=== PATIENT | female | born 1950 | race Caucasian/White ===

== ENCOUNTER → 2017-07-09 | Outpatient (CLI) | payer MEDICARE, OTHER | END | disposition home or self-care (01) | LOC: ECHO 10:43 | DX: I08.3 Combined rheumatic disorders of mitral, aortic and tricuspid valves (principal); R06.00 Dyspnea, unspecified | CPT/HCPCS: 93306 ==

== ENCOUNTER → 2017-10-08 | Outpatient (CLI) | payer MEDICARE, OTHER | END | disposition home or self-care (01) | LOC: NM 12:31 | DX: I48.0 Paroxysmal atrial fibrillation (principal) | CPT/HCPCS: 78452; 93017; 96374; 96376; A9500 ==

== ENCOUNTER → 2017-11-19 | Outpatient (CLI) | payer MEDICARE, OTHER ==
--- NOTE | 2017-11-19 11:25 | KCIC ---
Bone densitometry 11/19/2017 11:00 AM Indication: History of breast cancer. Comparison Study: Bone densitometry November 19, 2015 Discussion: Bone Densitometry was performed with dual photon absorption of the lumbar spine and left proximal femur. Lumbar Spine: Bone average density is 1.015g/cm2 for L1-L4. T-Score is -0.3. (Prior T score of 0.0) Left femoral neck: Bone average density is 0.815g/cm2. T-Score is -1.0. (Prior T score -0.8) IMPRESSION: 1. Mild decrease in bone mineral density measurements in the interim with left femoral neck now measuring of the osteopenic range 2. Normal bone mineral density of the lumbar spine Note: Definitions established by the World Health Organization: Normal: T-score is -1.0 or above. Osteopenia: T-score is between -1.0 and -2.5. Osteoporosis: T-score is -2.5 or below. Electronically signed by: Bryan Medley MD (11/19/2017 11:22 AM) [facility]
== END | disposition home or self-care (01) ==
LOC: KCIC DEXA 10:48
PROVIDERS: ATTEND Internal Medicine Hematology & Oncology
DX: N95.9 Unspecified menopausal and perimenopausal disorder (principal); I48.0 Paroxysmal atrial fibrillation; Z85.3 Personal history of malignant neoplasm of breast
CPT/HCPCS: 77080

== ENCOUNTER → 2018-02-24 | Outpatient (CLI) | payer MEDICARE, OTHER ==
[2018-02-24 11:51] LABS: CALCIUM 9.5 mg/dL (8.5-10.1); CHOLESTEROL/HDL RATIO 2.5; CREATININE 1.1 mg/dL (0.6-1.0); GFR 49.7; POTASSIUM 4.6 mmol/L (3.5-5.1)
== END | disposition home or self-care (01) ==
LOC: LAB 11:05
PROVIDERS: ATTEND Internal Medicine Cardiovascular Disease
DX: I47.1 Supraventricular tachycardia (principal)
CPT/HCPCS: 36415; 80048; 80061

== ENCOUNTER 2018-11-15 12:18 | Emergency (ER) | payer MEDICARE, OTHER ==
[~2018-11-15] VITALS: Ht 160 cm; Wt 61.2 kg
[2018-11-15 12:43] VITALS: BP 165/79
--- NOTE | 2018-11-15 13:14 | PHYS DOC ---
Past Medical History Past Medical History: GERD, High Cholesterol, Heart Disease, Hypertension, Hypothyroid Past Surgical History: Other Additional Past Surgical Histo: BILAT, MASTECTOMY Smoking: Less than 1pk/day (1990 day he is a tiny complaining of weakness and not eating hemoglobin of 5.3 history of anemia. He) Alcohol Use: None Drug Use: None Adult General Chief Complaint Chief Complaint: Palpitations HPI HPI Patient is a 68 year old female who presents with complaining of palpitation. Patient states she has had intermittent episodes of palpitation and extra heart beat since yesterday that usually last for a few minutes without shortness of breath, dizziness, nausea, chest pain focal neuro deficit. Patient complaining of mild generalized weakness. Patient seen by her primary care physician yesterday and had EKG and was told that she did not have any significant cardiac problem but because of continued to have abnormal heartbeat she decided to come to ER. Review of Systems Review of Systems Constitutional: Denies fever or chills [] Eyes: Denies change in visual acuity, redness, or eye pain [] HENT: Denies nasal congestion or sore throat [] Respiratory: Denies cough or shortness of breath [] Cardiovascular: No additional information not addressed in HPI [] GI: Denies abdominal pain, nausea, vomiting, bloody stools or diarrhea [] : Denies dysuria or hematuria [] Musculoskeletal: Denies back pain or joint pain [] Integument: Denies rash or skin lesions [] Neurologic: Denies headache, focal weakness or sensory changes [] Endocrine: Denies polyuria or polydipsia [] All other systems were reviewed and found to be within normal limits, except as documented in this note. Allergies Allergies Allergies Coded Allergies Type Severity Reaction Last Updated Verified Penicillins Allergy Severe RASH 11/15/18 Yes morphine Allergy Severe LOW BP 11/15/18 Yes prednisone Allergy Severe PALPATATIONS 11/15/18 Yes Physical Exam Physical Exam Constitutional: Well developed, well nourished, mild distress, non-toxic appearance. [] HENT: Normocephalic, atraumatic. Eyes: PERRLA, EOMI, conjunctiva normal, no discharge. [] Neck: Normal range of motion, no tenderness, supple, no stridor. [] Cardiovascular:Heart rate regular rhythm, no murmur [] Lungs & Thorax: Bilateral breath sounds clear to auscultation [] Abdomen: Bowel sounds normal, soft, no tenderness, no masses, no pulsatile masses. [] Skin: Warm, dry, no erythema, no rash. [] Back: No tenderness, no CVA tenderness. [] Extremities: No tenderness, no cyanosis, no clubbing, ROM intact, no edema. [] Neurologic: Alert and oriented X 3, no focal deficits noted. [] Psychologic: Affect normal, judgement normal, mood normal. [] Current Patient Data Vital Signs Vital Signs Date Time Temp Pulse Resp B/P (MAP) Pulse Ox O2 Delivery O2 Flow Rate FiO2 11/15/18 12:43 98.4 100 16 165/79 (107) 98 Room Air 98.4 Lab Values Laboratory Tests Test 11/15/18 13:24 11/15/18 14:00 White Blood Count 7.9 x10^3/uL (4.0-11.0) Red Blood Count 4.37 x10^6/uL (3.50-5.40) Hemoglobin 13.7 g/dL (12.0-15.5) Hematocrit 38.8 % (36.0-47.0) Mean Corpuscular Volume 89 fL (79-100) Mean Corpuscular Hemoglobin 31 pg (25-35) Mean Corpuscular Hemoglobin Concent 35 g/dL (31-37) Red Cell Distribution Width 12.9 % (11.5-14.5) Platelet Count 261 x10^3/uL (140-400) Neutrophils (%) (Auto) 75 % (31-73) H Lymphocytes (%) (Auto) 19 % (24-48) L Monocytes (%) (Auto) 6 % (0-9) Eosinophils (%) (Auto) 0 % (0-3) Basophils (%) (Auto) 0 % (0-3) Neutrophils # (Auto) 5.9 x10^3/uL (1.8-7.7) Lymphocytes # (Auto) 1.5 x10^3/uL (1.0-4.8) Monocytes # (Auto) 0.4 x10^3/uL (0.0-1.1) Eosinophils # (Auto) 0.0 x10^3/uL (0.0-0.7) Basophils # (Auto) 0.0 x10^3/uL (0.0-0.2) Prothrombin Time 12.3 SEC (11.7-14.0) Prothrombin Time INR 0.9 (0.8-1.1) Sodium Level 135 mmol/L (136-145) L Potassium Level 4.0 mmol/L (3.5-5.1) Chloride Level 99 mmol/L (98-107) Carbon Dioxide Level 25 mmol/L (21-32) Anion Gap 11 (6-14) Blood Urea Nitrogen 10 mg/dL (7-20) Creatinine 1.1 mg/dL (0.6-1.0) H Estimated GFR (Cockcroft-Gault) 49.5 BUN/Creatinine Ratio 9 (6-20) Glucose Level 160 mg/dL (70-99) H Calcium Level 9.8 mg/dL (8.5-10.1) Magnesium Level 1.8 mg/dL (1.8-2.4) Total Bilirubin 0.7 mg/dL (0.2-1.0) Aspartate Amino Transferase (AST) 14 U/L (15-37) L Alanine Aminotransferase (ALT) 12 U/L (14-59) L Alkaline Phosphatase 52 U/L (46-116) Creatine Kinase 36 U/L (26-192) Creatine Kinase MB (Mass) 0.7 ng/mL (0.0-3.6) Creatine Kinase MB Relative Index % (0-4) Troponin I Quantitative < 0.017 ng/mL (0.000-0.055) YF-Pqa-N-Type Natriuretic Peptide 946 pg/mL (0-124) H Total Protein 7.4 g/dL (6.4-8.2) Albumin 3.9 g/dL (3.4-5.0) Albumin/Globulin Ratio 1.1 (1.0-1.7) Lipase 263 U/L (73-393) Urine Collection Type Unknown Urine Color Yellow Urine Clarity Clear Urine pH 8.0 Urine Specific [place] 1.010 Urine Protein Negative mg/dL (NEG-TRACE) Urine Glucose (UA) Negative mg/dL (NEG) Urine Ketones (Stick) Negative mg/dL (NEG) Urine Blood Negative (NEG) Urine Nitrite Negative (NEG) Urine Bilirubin Negative (NEG) Urine Urobilinogen Dipstick 0.2 mg/dL (0.2 mg/dL) Urine Leukocyte Esterase Negative (NEG) Urine RBC Rare /HPF (0-2) Urine WBC Occ /HPF (0-4) Urine Squamous Epithelial Cells Few /LPF Urine Bacteria Few /HPF (0-FEW) Laboratory Tests 11/15/18 13:24 Laboratory Tests 11/15/18 13:24 EKG EKG EKG interpreted by me. EKG at 1225 showed sinus arrhythmia with rate of 92, abnormal left axis deviation, left anterior fascicular block, poor R-wave progress in anteroseptal leads, no acute ST and T-wave elevation. Radiology/Procedures Radiology/Procedures [][facility] [address] [place] [address] IMAGING REPORT Signed PATIENT: KAYLEN DARDEN ACCOUNT: [id number] : 1950 LOCATION: ER AGE: 68 SEX: F EXAM STATUS: REG ER ORD. PHYSICIAN: GIAN SOARES MD REASON: palpitation PROCEDURE: PORTABLE CHEST 1V PORTABLE CHEST 1V INDICATION: Palpitations. COMPARISON STUDY: CT chest 08/04/2007. FINDINGS: Lungs: Normal lung volume. No pulmonary mass or consolidation. The tracheobronchial tree and hilar structures are normal. Pleura: No pleural effusion or pneumothorax. Heart and Mediastinum: Normal cardiomediastinal silhouette and great vessels. Calcified mediastinal lymph nodes. Bones and Soft Tissues: The bones and soft tissues are within normal limits. IMPRESSION: No acute cardiopulmonary process. Electronically signed by: Veronica Isaac MD (11/15/2018 1:19 PM) [facility] DICTATED and SIGNED BY: VERONICA ISAAC MD DATE: 11/15/18 7847 Course & Med Decision Making Course & Med Decision Making Pertinent Labs and Imaging studies reviewed. (See chart for details) Evaluation of patient in ER showed 68-year-old female patient with history of tachycardia presented to ER with episodes of palpitation. Patient had unremarkable labs and EKG and chest x-ray. Patient had episodes of sinus tachycardia without change of blood pressure or mental status. Patient cardiol ogist was consulted and his nurse practitioner suggested to continue metoprolol and Flecainide and follow-up with their office. I've spoken with the patient and/or caregivers. I've explained the patient's condition, diagnosis and treatment plan based on information available to me at this time. I've answered the patient's and/or caregivers questions and addressed any concerns. The patient and/or caregivers have a good understanding the patient's diagnosis, condition and treatment plan as can be expected at this point. Vital signs have been stabilized. The patient's condition is stable for discharge from the emergency department. The patient will pursue further outpatient evaluation with her primary care provider or other designated consulting physician as outlined in the discharge instructions. Patient and/or caregivers are agreeable to this plan of care and follow-up instructions have been explained in detail. The patient and/or caregivers have received these instructions in written format and expressed understanding of these discharge instructions. The patient and her caregivers are aware that if any significant change in condition or worsening of symptoms should prompt him to immediately return to this of the closest emergency department. If an emergent department is not readily available I would encourage him to call 911. Dragon Disclaimer Dragon Disclaimer This electronic medical record was generated, in whole or in part, using a voice recognition dictation system. 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
--- NOTE | 2018-11-15 13:21 | RAD ---
PORTABLE CHEST 1V INDICATION: Palpitations. COMPARISON STUDY: CT chest 08/04/2007. FINDINGS: Lungs: Normal lung volume. No pulmonary mass or consolidation. The tracheobronchial tree and hilar structures are normal. Pleura: No pleural effusion or pneumothorax. Heart and Mediastinum: Normal cardiomediastinal silhouette and great vessels. Calcified mediastinal lymph nodes. Bones and Soft Tissues: The bones and soft tissues are within normal limits. IMPRESSION: No acute cardiopulmonary process. Electronically signed by: Rojelio Isaac MD (11/15/2018 1:19 PM) [facility]
[2018-11-15 13:43] LABS: BASO % 0 % (0-3); EOS % 0 % (0-3); HEMATOCRIT 38.8 % (36.0-47.0); HEMOGLOBIN 13.7 g/dL (12.0-15.5); LYMPH # 1.5 x10^3/uL (1.0-4.8); LYMPH % 19 % (24-48); MEAN CORPUSCULAR HEMOGLOBIN 31 pg (25-35); MEAN CORPUSCULAR HGB CONC 35 g/dL (31-37); MEAN CORPUSCULAR VOLUME 89 fL (79-100); MONO # 0.4 x10^3/uL (0.0-1.1); MONO % 6 % (0-9); NEUT # 5.9 x10^3/uL (1.8-7.7); NEUT % 75 % (31-73); PLATELET COUNT 261 x10^3/uL (140-400); RED BLOOD COUNT 4.37 x10^6/uL (3.50-5.40); RED CELL DISTRIBUTION WIDTH 12.9 % (11.5-14.5); WHITE BLOOD COUNT 7.9 x10^3/uL (4.0-11.0)
[2018-11-15 13:49] LABS: CALCIUM 9.8 mg/dL (8.5-10.1); CREATININE 1.1 mg/dL (0.6-1.0); GFR 49.5
[2018-11-15 13:50] LABS: PROTHROMBIN TIME PATIENT 12.3 SEC (11.7-14.0)
[2018-11-15 13:56] LABS: ALBUMIN 3.9 g/dL (3.4-5.0); ALBUMIN/GLOBULIN RATIO 1.1 (1.0-1.7); MAGNESIUM 1.8 mg/dL (1.8-2.4); TOTAL BILIRUBIN 0.7 mg/dL (0.2-1.0); TOTAL PROTEIN 7.4 g/dL (6.4-8.2)
[2018-11-15 14:03] LABS: CREATINE KINASE 36 U/L (26-192)
[2018-11-15 14:19] LABS: BILIRUBIN,URINE NEGATIVE (NEG); CLARITY,URINE CLEAR; COLOR,URINE YELLOW; NITRITE,URINE NEGATIVE (NEG); PROTEIN,URINE NEGATIVE (NEG-TRACE); UROBILINOGEN,URINE 0.2 mg/dL (0.2 mg/dL)
[2018-11-15 14:29] LABS: BACTERIA,URINE FEW /HPF (0-FEW); RBC,URINE RARE /HPF (0-2); SQUAMOUS EPITHELIAL CELL,UR FEW /LPF; WBC,URINE OCC /HPF (0-4)
--- NOTE | 2018-11-16 05:42 | EKG ---
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 Electronically Signed On 11-19-2018 9:57:10 CDT by Jatin Kruger
== END 2018-11-15 14:58 | disposition home or self-care (01) ==
LOC: ER 12:18
DX: R00.2 Palpitations (principal); R79.89 Other specified abnormal findings of blood chemistry; R00.0 Tachycardia, unspecified; R53.1 Weakness; K21.9 Gastro-esophageal reflux disease without esophagitis; E78.00 Pure hypercholesterolemia, unspecified; I11.9 Hypertensive heart disease without heart failure; E03.9 Hypothyroidism, unspecified; F17.200 Nicotine dependence, unspecified, uncomplicated; Z90.13 Acquired absence of bilateral breasts and nipples; Z88.0 Allergy status to penicillin; Z88.5 Allergy status to narcotic agent
CPT/HCPCS: 36415; 71045; 80053; 81001; 82550; 82553; 83690; 83735; 83880; 84484; 85025; 85610; 93005; 99285-25

== ENCOUNTER → 2019-08-17 | Outpatient (CLI) | payer MEDICARE, OTHER ==
--- NOTE | 2019-08-17 10:19 | CARD ---
MR#: [id number] Date of Study: 08/17/2019 Ordering Physician: CODI PIKE, Referring Physician: CODI PIKE, Tech: Domenica Ortiz [facility] APPROVED REPORT EXAM: Two-dimensional and M-mode echocardiogram with Doppler and color Doppler. Other Information Quality : Good INDICATION Supraventricular Tachycardia 2D DIMENSIONS RVDd2.8 (2.9-3.5cm)Left Atrium(2D)3.7 (1.6-4.0cm) IVSd0.9 (0.7-1.1cm)Aortic Root(2D)2.8 (2.0-3.7cm) LVDd5.0 (3.9-5.9cm)LVOT Diameter2.0 (1.8-2.4cm) PWd0.9 (0.7-1.1cm)LVDs3.9 (2.5-4.0cm) FS (%) 20.9 %SV49.5 ml Aortic Valve AoV Peak Gilberto.111.1cm/sAoV VTI22.9cm AO Peak GR.4.9mmHgLVOT Peak Gilberto.90.7cm/s AO Mean GR.3mmHgAVA (VMAX)2.66cm2 POOL (VTI)2.99fs0PY P 1/2 Zqlt597dg Mitral Valve MV E Bflwqwjb69.5cm/sMV DECEL JEIB042iz MV A Jvzcbbii34.5cm/sE/A Ratio1.0 Tricuspid Valve TR P. Honykcyc984uk/sRAP HKNDDXNQ4rwYw TR Peak Gr.67ofMlJHQU13jvFt Pulmonary Vein S1 Ptmywoln60.2cm/sD2 Zckgbixq82.4cm/s LEFT VENTRICLE The Left Ventricle is mildly dilated. There is normal left ventricular wall thickness. Left ventricle systolic function is mildly impaired. The Ejection Fraction is estimated at 45%. There is mild globa l hypokinesis of the left ventricle. Transmitral Doppler flow pattern is Grade II-pseudonormal fillin g dynamics. RIGHT VENTRICLE The right ventricle is normal size. The right ventricular systolic function is normal. ATRIA The left atrium size is normal. The right atrium size is normal. The interatrial septum is intact wit h no evidence for an atrial septal defect or patent foramen ovale as noted on 2-D or Doppler imaging. AORTIC VALVE The aortic valve is calcified but opens well. Doppler and Color Flow revealed mild aortic regurgitati on. There is no significant aortic valvular stenosis. MITRAL VALVE The mitral valve is calcified but opens well. There is no evidence of mitral valve prolapse. There is no mitral valve stenosis. Doppler and Color-flow revealed mild mitral regurgitation. TRICUSPID VALVE The tricuspid valve is normal in structure and function. Doppler and Color Flow revealed trace tricus pid regurgitation. The PA pressure was estimated at 23 mmHg. There is no tricuspid valve stenosis. PULMONIC VALVE The pulmonic valve is not well visualized. Doppler and Color Flow revealed mild pulmonic valvular reg urgitation. There is no pulmonic valvular stenosis. GREAT VESSELS The aortic root is normal in size. The ascending aorta is normal in size. The IVC is normal in size a nd collapses >50% with inspiration. PERICARDIAL EFFUSION There is no evidence of significant pericardial effusion. Critical Notification Critical Value: No <Conclusion> The Left Ventricle is mildly dilated. Left ventricle systolic function is mildly impaired. The Ejection Fraction is estimated at 45%. There is mild global hypokinesis of the left ventricle. Doppler and Color Flow revealed mild aortic regurgitation. There is no significant aortic valvular stenosis. Doppler and Color-flow revealed mild mitral regurgitation. Doppler and Color Flow revealed trace tricuspid regurgitation. The PA pressure was estimated at 23 mmHg. Signed by : Jatin Kruger MD Electronically Approved : 08/17/2019 10:19:15
== END | disposition home or self-care (01) ==
LOC: CARD 09:27
PROVIDERS: ATTEND Internal Medicine Cardiovascular Disease
DX: I08.8 Other rheumatic multiple valve diseases (principal); I47.1 Supraventricular tachycardia
CPT/HCPCS: 93306

== ENCOUNTER → 2019-11-21 | Outpatient (CLI) | payer MEDICARE, OTHER ==
--- NOTE | 2019-11-21 12:19 | KCIC ---
DEXA scan 11/21/2019 Clinical History: Breast cancer. Postmenopausal female. Risk factors for osteoporosis. Technique: DEXA of the lumbar spine and left hip was performed. FINDINGS: Comparison study is dated 11/19/2018. The bone mineral density of the lumbar spine is 1.056 g/cm2 which corresponds with a T-score of 0.1 . This is within normal limits. The mean bone mineral density of the lumbar spine has increased since the previous study where it measured 1.015 g/sq cm. The mean bone mineral density of the left hip is 0.863 g/sq cm. This corresponds to a T score of -0.6. This is within normal limits. The mean bone mineral density left hip is increased since previous study where it measured 0.815 g/sq cm. By World Congress on Osteoporosis criteria, a T score of 0 to-1 SD is considered to be within normal limits. A T score of -1 to -2.5 SD is considered osteopenia. A T score less than -2.5 SD is considered osteoporosis Impression: The patient's mean bone mineral densities are within normal limits and have increased since the previous study. Electronically signed by: Dashawn Adamson MD (11/21/2019 12:16 PM) [id number]
== END | disposition home or self-care (01) ==
LOC: KCIC DEXA 11:27
PROVIDERS: ATTEND Internal Medicine Hematology & Oncology
DX: C50.919 Malignant neoplasm of unspecified site of unspecified female breast (principal); M85.80 Other specified disorders of bone density and structure, unspecified site; Z17.0 Estrogen receptor positive status [ER+]; Z79.811 Long term (current) use of aromatase inhibitors
CPT/HCPCS: 77080

== ENCOUNTER → 2020-10-08 | Outpatient (CLI) | payer MEDICARE, OTHER ==
[2020-08-23 11:00] VITALS: BP 188/79
[~2020-10-08] MED LIST: ASPI-630 PO; EXEM25TA2 PO; FLEC100T PO; LEVO75TA5 PO; LISI-517 PO; METF500T16 PO; METO50TA4 PO; OMEP20TA8 PO; REGADENOSON 0.4 MG/5 ML DISP.SYRIN. IV ONE; SIMV40TA18 PO
--- NOTE | 2020-10-08 11:07 | CARD ---
MR#: [id number] Date of Study: 10/08/2020 Ordering Physician: CODI PIKE, Referring Physician: CODI PIKE, Tech: Lucita Valadez [facility] APPROVED REPORT EXAM: Two-dimensional and M-mode echocardiogram with Doppler and color Doppler. Other Information Quality : AverageGoodHR: 65bpm Rhythm : NSR INDICATION Palpitations Arrhythmia RISK FACTORS Hypertension 2D DIMENSIONS RVDd3.0 (2.9-3.5cm)Left Atrium(2D)4.2 (1.6-4.0cm) IVSd0.9 (0.7-1.1cm)Aortic Root(2D)3.0 (2.0-3.7cm) LVDd5.1 (3.9-5.9cm)LVOT Diameter2.1 (1.8-2.4cm) PWd1.1 (0.7-1.1cm)LVDs4.1 (2.5-4.0cm) FS (%) 18.5 %SV46.9 ml LVEF(%)38.1 (>50%) Aortic Valve AoV Peak Gilberto.114.9cm/sAoV VTI24.4cm AO Peak GR.5.3mmHgLVOT Peak Gilberto.76.3cm/s AO Mean GR.3mmHgAVA (VMAX)2.23cm2 AI P 1/2 [id number] Mitral Valve MV E Slvqproc13.4cm/sMV DECEL WFVQ867dh MV A Hbnqhfuj64.4cm/sE/A Ratio0.9 Pulmonary Valve PV Peak Juxuuaie271.8cm/s Tricuspid Valve TR P. Izjtcnna617rz/sTR Peak Gr.24mmHg LEFT VENTRICLE The left ventricle is normal size. There is normal left ventricular wall thickness. The left ventricu lar systolic function is mildly diminished. Estimated ejection fraction 45%. Transmitral Doppler flow pattern is Grade I-abnormal relaxation pattern. RIGHT VENTRICLE The right ventricle is normal size. There is normal right ventricular wall thickness. The right ventr icular systolic function is normal. ATRIA The left atrium size is normal. The right atrium size is normal. The interatrial septum is intact wit h no evidence for an atrial septal defect or patent foramen ovale as noted on 2-D or Doppler imaging. AORTIC VALVE The aortic valve is normal in structure and function. Doppler and Color Flow revealed mild aortic reg urgitation. There is no significant aortic valvular stenosis. MITRAL VALVE The mitral valve is normal in structure and function. There is no evidence of mitral valve prolapse. There is no mitral valve stenosis. Doppler and Color-flow revealed mild mitral regurgitation. TRICUSPID VALVE The tricuspid valve is normal in structure and function. Doppler and Color Flow revealed trace tricus pid regurgitation. There is no tricuspid valve stenosis. PULMONIC VALVE The pulmonary valve is normal in structure and function. Doppler and Color Flow revealed no pulmonic valvular regurgitation. GREAT VESSELS The aortic root is normal in size. The ascending aorta is normal in size. The IVC is normal in size a nd collapses >50% with inspiration. PERICARDIAL EFFUSION There is no evidence of significant pericardial effusion. Critical Notification Critical Value: No <Conclusion> The left ventricular systolic function is mildly diminished. Estimated ejection fraction 45%. Transmitral Doppler flow pattern is Grade I-abnormal relaxation pattern. Mild aortic regurgitation. Mild mitral regurgitation. Trace tricuspid regurgitation. There is no evidence of significant pericardial effusion. Signed by : Kosta Yadav, Electronically Approved : 10/08/2020 11:06:49
--- NOTE | 2020-10-09 10:09 | RAD ---
MR#: [id number] Date of Study: 10/08/2020 Ordering Physician: CODI PIKE, Referring Physician: MOLLY HEARN Tech: RT Gay (R) (N) APPROVED REPORT Test Type: Pharmacological Stress Nurse/Tech: Andreina Pedroza RN Test Indications: paroxysmal a-fib Cardiac History: No known cardiac,chemotherapy for breast CA Medications: See Electronic Medical Record Medical History: See Electronic Medical Record Resting ECG: SR Resting Heart Rate: 71 bpm Resting Blood Pressure: 165/67mmHg Pretest Chest Pain: No chest pain Nurse/Tech Notes S1,S2 and lungs clear to ascultation. Consent: The procedure was explained to the patient in lay terms. Informed consent was witnessed. Marcellus eout was entered into [employer]. History and Stress Test performed by RT Gay (R) (N) Pharm. Details Pharmacologic stress testing was performed using 0.4mg per 5ml of regadenoson given intravenously ove r 7-10 seconds. Stress Symptoms Dyspnea POST EXERCISE Reason for Termination: Infusion complete Target HR: No Max Blood Pressure: 167/71mmHg Blood Pressure response to exercise: Normal blood pressure response during stress. Heart Rate response to exercise: WNL Chest Pain: No. Arrhythmia: No. ST Change: No. INTERPRETATION Stress EKG Conclusion: Baseline EKG showed sinus rhythm. No ischemic changes at peak stress. No arr hythmias. Imaging Protocol IMAGE PROTOCOL: Rest Tc-99m/stress Tc-99m 1 day Rest: Stress: Viability: Radiopharm.Tc99m ItlexiqikXb94k Sestamibi Dose9.8mCi 33mCi Duration 15min. 15min. Img Date 10/08/2020 10/08/2020 Inj-Img Ffrm50tlw. 60min. Rest Admin Site:IV - Left AntecubitalAdministrator:RT Aubrey (Ishmael)(N) Stress Admin Site: IV - Left AntecubitalAdministrator: RT Gay (R)(N) STRESS DATA End Diast. Vol.128.0mlAv. Heart Rate74.0bpm End Syst. Vol.54.0mlCO Index BSA0.0L/min Myocardial Ujul275.0gEject. Lguucloa94.0% Stress Rates Pk. Fill Rate2.71EDV/secLVtime Pk. Fill 88.58msec Pk. Empty Rate2.88ESV/secLVtime Pk. Luuqy199.67msec 1/3 Pk. Fill1.85EDV/sec Stress Scores Regional WT0.00Summed WT10.00 Regional WM0.00Summed WM14.00 Study quality was fair. Left Ventricular size was Normal at Rest and Stress. Lung uptake was . Left Ventricular ejection fraction is 58%. The rest and stress images show normal perfusion, normal contraction and thickening. LV Perf. Quant 17 Seg. SSS13.00 17 Seg. SRS18.00 17 Seg. SDS0.00 Stress Defect Extent (% LAD)18.10Rest Defect Extent (% LAD)23.10Rev. Defect Extent (% LAD)0.00 Stress Defect Extent (% LCX) 50.00Rest Defect Extent (% LCX)43.80Rev. Defect Extent (% LCX)2.50 Stress Defect Extent (% RCA)1.10Rest Defect Extent (% RCA)84.40Rev. Defect Extent (% RCA)0.00 Stress Defect Extent (% ALBERTO)21.30Rest Defect Extent (% ALBERTO)43.70Rev. Defect Extent (% ALBERTO)0.40 Conclusion 1. Regadenoson cardioisotope stress test did not show any evidence of ischemia or infarct. 2. Normal left ventricular systolic function with ejection fraction calculated at 58%. 3. Low risk for cardiac events. Signed by : Kosta Yadav, Electronically Approved : 10/09/2020 10:09:09
== END ==
LOC: NM 09:14
PROVIDERS: ATTEND Internal Medicine Cardiovascular Disease
DX: I08.0 Rheumatic disorders of both mitral and aortic valves (principal); I47.1 Supraventricular tachycardia
CPT/HCPCS: 78452; 93017; 93306; A9500; J2785

== ENCOUNTER 2020-12-19 19:57 | Emergency (ER) | payer MEDICARE, OTHER ==
[~2020-12-19] VITALS: Ht 160 cm; Wt 61.0 kg
[~2020-12-19 19:57] MED LIST changes: -REGADENOSON 0.4 MG/5 ML DISP.SYRIN. IV ONE
[2020-12-19] MEDS ORDERED: FLECAINIDE ACETATE 50 MG TABLET. PO SCH (20:45)
[2020-12-19] MEDS ORDERED: METOPROLOL TART IMMED RELEASE 50 MG TABLET. PO ONE (20:45)
[2020-12-19 21:00] LABS: BASO % 1 % (0-3); EOS % 1 % (0-3); HEMATOCRIT 34.8 % (36.0-47.0); HEMOGLOBIN 12.1 g/dL (12.0-15.5); LYMPH # 1.5 x10^3/uL (1.0-4.8); LYMPH % 24 % (24-48); MEAN CORPUSCULAR HEMOGLOBIN 31 pg (25-35); MEAN CORPUSCULAR HGB CONC 35 g/dL (31-37); MEAN CORPUSCULAR VOLUME 88 fL (79-100); MONO # 0.6 x10^3/uL (0.0-1.1); MONO % 10 % (0-9); NEUT % 65 % (31-73); PLATELET COUNT 260 x10^3/uL (140-400); RED BLOOD COUNT 3.96 x10^6/uL (3.50-5.40); RED CELL DISTRIBUTION WIDTH 13.1 % (11.5-14.5); WHITE BLOOD COUNT 6.1 x10^3/uL (4.0-11.0)
--- NOTE | 2020-12-19 21:03 | PHYS DOC ---
Past Medical History Past Medical History: Cancer, Diabetes-Type II, Hypothyroid Additional Past Medical Histor: SVT, BREAST CA WITH RADIATION AND CHEMO, pre-DM (RAMON BRAR Linda [employer]SE SUPERVISOR) Past Surgical History: Tubal ligation Additional Past Surgical Histo: DOUBLE MASTECTOMY (RAMON BRAR [employer] SUPERVISOR) Smoking Status: Never Smoker Alcohol Use: None Drug Use: None (RAMON BRAR Linda [employer] SUPERVISOR) General Adult EDM: Chief Complaint: RAPID HEART RATE HPI: HPI: Patient is a 70 year old female with a history of SVTs, hypothyroidism, diabetes type 2, who presents the ED today to be evaluated for an SVT movement that occurred this evening. Patient states she went for a walk this evening when she returned home she felt her heart was racing, she took her vitals, she states her heart rate was in the 140s. Patient denies any other symptoms. She states this episode lasted a few seconds then stopped. She states she feels she is back to her baseline right now. (RAMON BRAR Linda [employer] SUPERVISOR) Review of Systems: Review of Systems: Constitutional: Denies fever or chills. [] Eyes: Denies change in visual acuity. [] HENT: Denies nasal congestion or sore throat. [] Respiratory: Denies cough or shortness of breath. [] Cardiovascular: Reports SVT movement. Denies chest pain or edema. [] GI: Denies abdominal pain, nausea, vomiting, bloody stools or diarrhea. [] : Denies dysuria. [] Musculoskeletal: Denies back pain or joint pain. [] Integument: Denies rash. [] Neurologic: Denies headache, focal weakness or sensory changes. [] Endocrine: Denies polyuria or polydipsia. [] Lymphatic: Denies swollen glands. [] Psychiatric: Denies depression or anxiety. [] (RAMON BRAR Linda [employer] SUPERVISOR) Heart Score: C/O Chest Pain: N/A Risk Factors: Risk Factors: DM, Current or recent (<one month) smoker, HTN, HLP, family history of CAD, obesity. Risk Scores: Score 0 - 3: 2.5% MACE over next 6 weeks - Discharge Home Score 4 - 6: 20.3% MACE over next 6 weeks - Admit for Clinical Observation Score 7 - 10: 72.7% MACE over next 6 weeks - Early Invasive Strategies (RAMON BRAR ) Current Medications: Current Medications Medications (Trade) Dose Ordered Sig/Harrison Start Time Stop Time Status Last Admin Dose Admin Flecainide Acetate (Tambocor) 100 mg 1X 12/19/20 20:45 Metoprolol Tartrate (Lopressor) 50 mg 1X ONCE 12/19/20 20:45 12/19/20 20:46 DC (RAMON BRAR [employer]) Allergies: Allergies: Allergies Coded Allergies Type Severity Reaction Last Updated Verified Penicillins Allergy Severe RASH 11/15/18 Yes morphine Adverse Reaction Severe LOW BP 08/23/20 Yes prednisone Adverse Reaction Severe PALPITATIONS 08/23/20 Yes (RAMON BRAR [employer]PER[employer]) Physical Exam: PE: Constitutional: Well developed, well nourished, no acute distress, non-toxic appearance. [] HENT: Normocephalic, atraumatic, bilateral external ears normal, oropharynx moist, no oral exudates, nose normal. [] Eyes: PERRLA, EOMI, conjunctiva normal, no discharge. [] Neck: Normal range of motion, no tenderness, supple, no stridor. [] Cardiovascular:Heart rate regular rhythm, Lungs & Thorax: Bilateral breath sounds clear to auscultation [] Abdomen: Bowel sounds normal, soft, no tenderness, no masses, no pulsatile masses. [] Skin: Warm, dry, no erythema, no rash. [] Back: No tenderness, no CVA tenderness. [] Extremities: No tenderness, no cyanosis, no clubbing, ROM intact, no edema. [] Neurologic: Alert and oriented X 3, normal motor function, normal sensory function, no focal deficits noted. [] Psychologic: Affect normal, judgement normal, mood normal. [] (RAMON BRAR ) Current Patient Data: Vital Signs: Vital Signs Date Time Temp Pulse Resp B/P (MAP) Pulse Ox O2 Delivery O2 Flow Rate FiO2 12/19/20 20:03 98.2 91 20 197/91 (126) 100 Room Air 98.2 (RAMON BRAR [employer]PER[employer]) EKG: EK interpreted by Dr. Vogt sinus tachycardia heart rate 132 no STEMI patient disputed this EKG, she states her heart rate does not feel fast. She states she is back to her baseline. (RAMON BRAR APRN) Radiology/Procedures: Radiology/Procedures: [] (RAMON BRAR APRN) Course & Med Decision Making: Course & Med Decision Making Pertinent Labs and Imaging studies reviewed. (See chart for details) This is a 70-year-old female patient presenting to the ED today complaining of an SVT moment. Patient went for a walk and returned to her house this evening, her heart rate was in the 140s. The movement lasted a few seconds. Arrives in [facility] ED in sinus rhythm, heart rate of 89 on the monitor Patient has had a double mastectomy. They had to take blood pressure on her right lower extremity which was 197/91, patient disputed this number. She requested she rechecks her own blood pressure with her own machine on the left wrist. Blood pressure was 134/76 with a heart rate in the 80s. She takes metoprolol and flecainide, which was given in the ED. she continues to be in sinus rhythm in the ED with heart rate in the 60s right now. Blood pressure 160s over 60s. He was discharged to home. She has good follow-up with a director of user experience. Recommended she follows up as soon as possible. (RAMON BRAR APRN) Course & Med Decision Making Patients Care and treatment plan provided by ER Nurse Practitioner. I was available for consult. Patient's chart reviewed. (GERARDO VOGT DO) Alpesh Disclaimer: Alpesh Disclaimer: This electronic medical record was generated, in whole or in part, using a voice recognition dictation system. (RAMON BRAR APRN) Departure Departure Impression: Primary Impression: PSVT (paroxysmal supraventricular tachycardia) Disposition: 01 HOME / SELF CARE / HOMELESS Condition: STABLE Referrals: JANEL BUSTAMANTE MD (PCP) CODI JEWELL MD follow up in the course of this week or next week Patient Instructions: Supraventricular Tachycardia, [id number] Additional Instructions: Please call Dr. Jewell and set up a follow up appointment as soon as you can. Please come back to the ED at any point you have concerning symptoms RAMON BRAR APRN Dec 19, 2020 21:03 GERARDO VOGT DO Dec 21, 2020 18:21
[2020-12-19 21:09] LABS: POTASSIUM 4.1 mmol/L (3.5-5.1)
[2020-12-19 21:16] LABS: ALBUMIN 3.8 g/dL (3.4-5.0); ALBUMIN/GLOBULIN RATIO 1.2 (1.0-1.7); MAGNESIUM 1.8 mg/dL (1.8-2.4); TOTAL BILIRUBIN 0.7 mg/dL (0.2-1.0); TOTAL PROTEIN 7.1 g/dL (6.4-8.2)
[2020-12-19 21:30] VITALS: BP 167/99
== END 2020-12-19 22:03 | disposition home or self-care (01) ==
LOC: ER 19:57
DX: I47.1 Supraventricular tachycardia (principal); E11.9 Type 2 diabetes mellitus without complications; E03.9 Hypothyroidism, unspecified; Z88.0 Allergy status to penicillin; Z88.5 Allergy status to narcotic agent
CPT/HCPCS: 36415; 80053; 83735; 83880; 84443; 84484; 85025; 99284; 99285-25

== ENCOUNTER 2021-02-16 06:00 | Emergency (ER) | payer MEDICARE, OTHER ==
[~2021-02-16] VITALS: Ht 160 cm; Wt 63.6 kg
[~2021-02-16 06:00] MED LIST changes: -LISI-517 PO; +LISI5TAB15 PO
--- NOTE | 2021-02-16 06:37 | PHYS DOC ---
Past Medical History Past Medical History: Cancer, Diabetes-Type II, Hypothyroid Additional Past Medical Histor: TACHYCARDIA,SVT, BREAST CA WITH RADIATION AND CHEMO, pre-DM Past Surgical History: Tubal ligation Additional Past Surgical Histo: DOUBLE MASTECTOMY Smoking Status: Never Smoker Alcohol Use: None Drug Use: None General Adult EDM: Chief Complaint: RAPID HEART RATE HPI: HPI: Patient is a 70 year old female with history of prediabetes, hypothyroidism, SVT who presents with an episode of SVT. 5 AM palpitations woke her from sleep. Denied any chest pressure/pain, shortness of breath. No recent preceding symptoms such as fever/chills, nausea/vomiting, diarrhea, abdominal pain, cough/congestion etc. Has been feeling in her normal state of health when she went to bed last night. Has had many previous episode of SVT and follows with cardiology, Dr. Jewell. She is currently on metoprolol succinate 50 mg daily and flecainide 100 mg twice daily. She has not had her morning doses of either. On EMS arrival EKG showed SVT in the 160s. She was given 6 mg of IV adenosine with conversion to a sinus rhythm tachycardia. She is now feeling essentially asymptomatic. She states that she is now more strongly considering an ablation with her assistant professor sculpture. Review of Systems: Review of Systems: Constitutional: Denies fever or chills. [] Eyes: Denies change in visual acuity. [] HENT: Denies nasal congestion or sore throat. [] Respiratory: Denies cough or shortness of breath. [] Cardiovascular: Denies chest pain or edema.. Reports palpitations [] GI: Denies abdominal pain, nausea, vomiting, bloody stools or diarrhea. [] : Denies dysuria. [] Musculoskeletal: Denies back pain or joint pain. [] Integument: Denies rash. [] Neurologic: Denies headache, focal weakness or sensory changes. [] Endocrine: Denies polyuria or polydipsia. [] Lymphatic: Denies swollen glands. [] Psychiatric: Denies depression or anxiety. [] Heart Score: C/O Chest Pain: No Risk Factors: Risk Factors: DM, Current or recent (<one month) smoker, HTN, HLP, family history of CAD, obesity. Risk Scores: Score 0 - 3: 2.5% MACE over next 6 weeks - Discharge Home Score 4 - 6: 20.3% MACE over next 6 weeks - Admit for Clinical Observation Score 7 - 10: 72.7% MACE over next 6 weeks - Early Invasive Strategies Current Medications: Current Medications Medications (Trade) Dose Ordered Sig/Harrison Start Time Stop Time Status Last Admin Dose Admin Flecainide Acetate (Tambocor) 100 mg Q12HR 02/16/21 07:00 02/16/21 06:29 100 MG Metoprolol Succinate (Toprol Xl) 50 mg 1X ONCE 02/16/21 07:00 02/16/21 07:01 02/16/21 06:28 50 MG Allergies: Allergies: Allergies Coded Allergies Type Severity Reaction Last Updated Verified Penicillins Allergy Severe RASH 11/15/18 Yes morphine Adverse Reaction Severe LOW BP 08/23/20 Yes prednisone Adverse Reaction Severe PALPITATIONS 08/23/20 Yes Physical Exam: PE: Constitutional: Well developed, well nourished, no acute distress, non-toxic appearance. [] HENT: Normocephalic, atraumatic, bilateral external ears normal, oropharynx moist, no oral exudates, nose normal. [] Eyes: PERRLA, EOMI, conjunctiva normal, no discharge. [] Neck: Normal range of motion, no tenderness, supple, no stridor. [] Cardiovascular: Tachycardic and regular. Systolic murmur present. Lungs & Thorax: Bilateral breath sounds clear to auscultation [] Abdomen: Bowel sounds normal, soft, no tenderness, no masses, no pulsatile masses. [] Skin: Warm, dry, no erythema, no rash. [] Back: No tenderness, no CVA tenderness. [] Extremities: No tenderness, no cyanosis, no clubbing, ROM intact, no edema. [] Neurologic: Alert and oriented X 3, normal motor function, normal sensory function, no focal deficits noted. [] Psychologic: Affect normal, judgement normal, mood normal. [] Current Patient Data: Vital Signs: Vital Signs Date Time Temp Pulse Resp B/P (MAP) Pulse Ox O2 Delivery O2 Flow Rate FiO2 02/16/21 06:29 115 179/108 02/16/21 06:03 98.0 16 99 Room Air 98.0 EKG: EKG: [] Sinus tachycardia. Rate 113. Normal HI interval. QRS slightly prolonged 124 ms. QTc 41 ms LVH by aVL criteria. Left bundle branch pattern. Radiology/Procedures: Radiology/Procedures: [] Course & Med Decision Making: Course & Med Decision Making Pertinent Labs and Imaging studies reviewed. (See chart for details) Patient 70-year-old female with history of SVT, hypothyroidism, prediabetes who presents with an episode of SVT s/p conversion with 6 mg adenosine by EMS. On arrival is afebrile, tachycardic in the 110s. EKG shows sinus tachycardia. Does not seem to have any prodromal symptoms or precipitating factors. We will check electrolytes, cell counts, TSH. Has not received her morning flecainide or metoprolol dose, so we will administer these and continue to monitor on telemetry. 0637 Electrolytes and cell counts non-contributory. TSH elevated at 6.2. Doubt this is the etiology of her SVT. Will advise she discuss with her PCP regarding her levothryroxine dosing. Heart rate now in the 70s following her morning medications. Feel she is safe for discharge with cardiology follow up. She will call Dr. Jewell's office on Thursday. 722 [employer] Disclaimer: Sportomato Disclaimer: This electronic medical record was generated, in whole or in part, using a voice recognition dictation system. Departure Departure Impression: Primary Impression: PSVT (paroxysmal supraventricular tachycardia) Disposition: HOME / SELF CARE / HOMELESS Condition: STABLE Referrals: JANEL BUSTAMANTE MD (PCP) Additional Instructions: Your TSH was slightly abnormal at 6.2. This may indicate that you need to have an increase in your thyroid medication dosing. Please discuss this with your primary care doctor. The rest of your blood work was reassuring. Please call your assistant professor sculpture, Dr. Jewell, on Thursday to schedule appointment. If you are still wishing to discuss an ablation that should be done as an outpatient with his offices. If you develop recurrent symptoms you can return to the emergency department at any time for reevaluation. Otherwise, please continue to take your medications as currently prescribed. LISA CARPENTER MD Feb 16, 2021 06:37
[2021-02-16 06:50] LABS: BASO % 0 % (0-3); EOS % 0 % (0-3); HEMATOCRIT 37.5 % (36.0-47.0); HEMOGLOBIN 12.6 g/dL (12.0-15.5); LYMPH # 1.6 x10^3/uL (1.0-4.8); LYMPH % 27 % (24-48); MEAN CORPUSCULAR HEMOGLOBIN 29 pg (25-35); MEAN CORPUSCULAR HGB CONC 34 g/dL (31-37); MEAN CORPUSCULAR VOLUME 88 fL (79-100); MONO # 0.5 x10^3/uL (0.0-1.1); MONO % 8 % (0-9); NEUT # 3.7 x10^3/uL (1.8-7.7); NEUT % 64 % (31-73); PLATELET COUNT 249 x10^3/uL (140-400); RED BLOOD COUNT 4.28 x10^6/uL (3.50-5.40); RED CELL DISTRIBUTION WIDTH 13.4 % (11.5-14.5); WHITE BLOOD COUNT 5.8 x10^3/uL (4.0-11.0)
[2021-02-16 07:00] LABS: CALCIUM 8.4 mg/dL (8.5-10.1); POTASSIUM 3.8 mmol/L (3.5-5.1)
[2021-02-16] MEDS ORDERED: METOPROLOL SUCC 24HR ER 50 MG TAB.ER.24H. PO ONE (07:00)
[2021-02-16] MEDS ORDERED: FLECAINIDE ACETATE 50 MG TABLET. PO SCH (07:00)
[2021-02-16 07:01] LABS: MAGNESIUM 1.8 mg/dL (1.8-2.4)
[2021-02-16 07:19] VITALS: BP 162/85
--- NOTE | 2021-02-16 23:39 | EKG ---
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
== END 2021-02-16 07:44 | disposition home or self-care (01) ==
LOC: ER 06:00
DX: I47.1 Supraventricular tachycardia (principal); E03.9 Hypothyroidism, unspecified; E11.9 Type 2 diabetes mellitus without complications; R07.89 Other chest pain; Z88.0 Allergy status to penicillin; Z88.5 Allergy status to narcotic agent
CPT/HCPCS: 36415; 80048; 83735; 84443; 85025; 93005; 99284

== ENCOUNTER 2021-06-17 13:51 | Inpatient (IN) | payer MEDICARE, OTHER ==
[~2021-06-17] VITALS: Ht 160 cm; Wt 66.7 kg
--- NOTE | 2021-06-17 14:11 | PHYS DOC ---
Past Medical History Past Medical History: A-Fib, Cancer, Diabetes-Type II, Hypothyroid Additional Past Medical Histor: TACHYCARDIA,SVT, BREAST CA WITH RADIATION AND CHEMO, pre-DM Past Surgical History: Tubal ligation Additional Past Surgical Histo: DOUBLE MASTECTOMY Smoking Status: Never Smoker Alcohol Use: None Drug Use: None General Adult EDM: Chief Complaint: MECHANICAL FALL HPI: HPI: Patient is a 71 year old female with history of diabetes type 2, hypertension, A. fib on Eliquis and Cardizem presented to the ED today COVID19 after falling. Patient states she was in her bathroom washing her hands when she became dizzy and fell hitting her right forehead on the vanity. Patient denies any loss of consciousness, denies any pain. Reports having a cardiac ablation last week Review of Systems: Review of Systems: Constitutional: Denies fever or chills. [] Eyes: Denies change in visual acuity. [] HENT: Denies nasal congestion or sore throat. [] Respiratory: Denies cough or shortness of breath. [] Cardiovascular: Denies chest pain or edema. [] GI: Denies abdominal pain, nausea, vomiting, bloody stools or diarrhea. [] : Denies dysuria. [] Musculoskeletal: Denies back pain or joint pain. [] Integument: Denies rash. [] Neurologic: Reports right forehead contusion, reports of dizziness, denies headache, focal weakness or sensory changes. [] Psychiatric: Denies depression or anxiety. [] Heart Score: C/O Chest Pain: N/A Risk Factors: Risk Factors: DM, Current or recent (<one month) smoker, HTN, HLP, family history of CAD, obesity. Risk Scores: Score 0 - 3: 2.5% MACE over next 6 weeks - Discharge Home Score 4 - 6: 20.3% MACE over next 6 weeks - Admit for Clinical Observation Score 7 - 10: 72.7% MACE over next 6 weeks - Early Invasive Strategies Allergies: Allergies: Allergies Coded Allergies Type Severity Reaction Last Updated Verified Penicillins Allergy Severe RASH 11/15/18 Yes morphine Adverse Reaction Severe LOW BP 08/23/20 Yes prednisone Adverse Reaction Severe PALPITATIONS 08/23/20 Yes Physical Exam: PE: Constitutional: Well developed, well nourished, no acute distress, non-toxic appearance. [] HENT: Normocephalic, atraumatic, bilateral external ears normal, oropharynx moist, no oral exudates, nose normal. [] Eyes: PERRLA, EOMI, conjunctiva normal, no discharge. [] Neck: Normal range of motion, no tenderness, supple, no stridor. [] Cardiovascular:irregular, irregular Lungs & Thorax: Bilateral breath sounds clear to auscultation [] Abdomen: Bowel sounds normal, soft, no tenderness, no masses, no pulsatile masses. [] Skin: Warm, dry, no rash. [] Back: No tenderness, no CVA tenderness. [] Extremities: No tenderness, no cyanosis, no clubbing, ROM intact, no edema. [] Neurologic: Right forehead with a small contusion alert and oriented X 3, normal motor function, normal sensory function, no focal deficits noted. Cranial nerves II through XII intact Psychologic: Affect normal, judgement normal, mood normal. [] EKG: EK interpreted by Dr. Otilia doss heart rate 111 no STEMI [] Radiology/Procedures: Radiology/Procedures: []PROCEDURE: CT HEAD AND CERVICAL SPINE WO CT HEAD AND C-SPINE WO Date: 06/17/2021 2:47 PM Clinical Indication: Pain, fall Comparison: None. Technique: 5 mm axial tomographic images were obtained of the head without contrast. These were viewed on brain and bone windows. Noncontrast CT of the cervical spine was performed. Sagittal and coronal reformats were performed and evaluated. One or more of the following dose reduction techniques were utilized: Automated exposure control (AEC), Adjustment of mA and/or kV according to patient size, Use of iterative reconstruction technique such as ASiR, CT scan done according to ALARA and image gently/image wisely HEAD FINDINGS: Mild generalized cerebral and cerebellar volume loss. Mild nonspecific periventricular hypoattenuation, most commonly seen with chronic small vessel ischemic disease. No intra- or extra-axial mass or fluid collection. No acute hemorrhage. The ventricles are normal in size, shape, and morphology. The jones-white matter junction is normal. The basilar cisterns are patent. The visualized paranasal sinuses are normal. The visualized portions of the orbits and globes are normal. The mastoid air cells are clear. No aggressive osseous lesion or fracture. CERVICAL SPINE FINDINGS: The cervical spine is normally aligned. No acute fracture. No aggressive lytic or blastic osseous lesions. Mild multilevel degenerative disc space height loss. Multilevel mild spinal canal stenosis secondary to disc protrusions and marginal osteophytes. Multilevel mild neuroforaminal narrowing secondary to uncovertebral arthrosis. Multilevel mild facet arthrosis. Partially visualized enlarged left thyroid. No cervical lymphadenopathy. Bilateral carotid atherosclerosis. The visualized aerodigestive tract is normal. The visualized portions of the lungs are clear. IMPRESSION: 1. No acute intracranial process. Right frontal scalp swelling. 2. No acute cervical spine fracture. 3. Left thyroid goiter. Electronically signed by: Veronica Isaac MD (06/17/2021 3:00 PM) [id number] DICTATED and SIGNED BY: VERONICA ISAAC MD DATE: 06/17/21 1455 PROCEDURE: PORTABLE CHEST 1V XR CHEST 1V 06/17/2021 2:12 PM INDICATION: Dizziness, fall COMPARISON: 08/22/2020 TECHNIQUE: Portable frontal view of the chest is provided. FINDINGS: The cardiomediastinal silhouette is within normal limits. Lungs are clear. There are no significant pleural effusions. There is no pulmonary vascular congestion. No pneumothorax. No suspicious osseous abnormality. IMPRESSION: There is no acute cardiopulmonary process. Electronically signed by: Patti Hale MD (06/17/2021 2:31 PM) [id number] DICTATED and SIGNED BY: PATTI HALE MD DATE: 06/17/21 1428 Course & Med Decision Making: Course & Med Decision Making Pertinent Labs and Imaging studies reviewed. (See chart for details) This is a 71-year-old female patient presenting to the ED to be evaluated in the ED after falling. Patient reports feeling dizzy prior to falling. Had a cardiac ablation last week. Vitals on arrival to the ED temperature 98.3, heart rate 120 in A. fib, respirations 16, blood pressure 198/87, O2 sats 98%. She states she has no history of hypertension. Patient is in A. fib on arrival to the ED with HRs in the 120s to 140s-Cardizem ordered CBC no acute findings, CMP with magnesium of 1.7, BNP 3091 CT of the head, cervical spine were negative for any acute findings, noted for left goiter Chest x-ray is negative for any acute findings Spoke with Dr. Polo who accepted patient for admission, routine consult for cardiology placed Dragon Disclaimer: Alpesh Disclaimer: This electronic medical record was generated, in whole or in part, using a voice recognition dictation system. Departure Departure Impression: Primary Impression: Dizziness Additional Impressions: Atrial fibrillation with RVR CHF exacerbation Qualified Codes: I50.9 - Heart failure, unspecified Disposition: 09 ADMITTED INPATIENT Condition: STABLE Referrals: JANEL BUSTAMANTE MD (PCP) RAMON BRAR APRN Jun 17, 2021 14:11
--- NOTE | 2021-06-17 14:34 | RAD ---
XR CHEST 1V 06/17/2021 2:12 PM INDICATION: Dizziness, fall COMPARISON: 08/22/2020 TECHNIQUE: Portable frontal view of the chest is provided. FINDINGS: The cardiomediastinal silhouette is within normal limits. Lungs are clear. There are no significant pleural effusions. There is no pulmonary vascular congestion. No pneumothora x. No suspicious osseous abnormality. IMPRESSION: There is no acute cardiopulmonary process. Electronically signed by: Patti Garcia MD (06/17/2021 2:31 PM) [id number]
--- NOTE | 2021-06-17 15:03 | RAD ---
CT HEAD AND C-SPINE WO Date: 06/17/2021 2:47 PM Clinical Indication: Pain, fall Comparison: None. Technique: 5 mm axial tomographic images were obtained of the head without contrast. These were view ed on brain and bone windows. Noncontrast CT of the cervical spine was performed. Sagittal and hollingsworth l reformats were performed and evaluated. One or more of the following dose reduction techniques were utilized: Automated exposure control (AEC), Adjustment of mA and/or kV according to patient size, Us e of iterative reconstruction technique such as ASiR, CT scan done according to ALARA and image gentl y/image wisely HEAD FINDINGS: Mild generalized cerebral and cerebellar volume loss. Mild nonspecific periventricular hypoattenuatio n, most commonly seen with chronic small vessel ischemic disease. No intra- or extra-axial mass or fluid collection. No acute hemorrhage. The ventricles are normal in size, shape, and morphology. The jones-white matter junction is normal. The basilar cisterns are paten t. The visualized paranasal sinuses are normal. The visualized portions of the orbits and globes are no rmal. The mastoid air cells are clear. No aggressive osseous lesion or fracture. CERVICAL SPINE FINDINGS: The cervical spine is normally aligned. No acute fracture. No aggressive lytic or blastic osseous les ions. Mild multilevel degenerative disc space height loss. Multilevel mild spinal canal stenosis secondary to disc protrusions and marginal osteophytes. Multilevel mild neuroforaminal narrowing secondary to u ncovertebral arthrosis. Multilevel mild facet arthrosis. Partially visualized enlarged left thyroid. No cervical lymphadenopathy. Bilateral carotid atheroscle rosis. The visualized aerodigestive tract is normal. The visualized portions of the lungs are clear. IMPRESSION: 1. No acute intracranial process. Right frontal scalp swelling. 2. No acute cervical spine fracture. 3. Left thyroid goiter. Electronically signed by: Rojelio Isaac MD (06/17/2021 3:00 PM) [id number]
[2021-06-17 15:32] LABS: BASO % 0 % (0-3); EOS % 0 % (0-3); HEMOGLOBIN 12.1 g/dL (12.0-15.5); LYMPH # 0.8 x10^3/uL (1.0-4.8); LYMPH % 8 % (24-48); MEAN CORPUSCULAR HEMOGLOBIN 30 pg (25-35); MEAN CORPUSCULAR HGB CONC 34 g/dL (31-37); MEAN CORPUSCULAR VOLUME 88 fL (79-100); MONO # 0.7 x10^3/uL (0.0-1.1); MONO % 7 % (0-9); NEUT # 8.2 x10^3/uL (1.8-7.7); NEUT % 85 % (31-73); PLATELET COUNT 302 x10^3/uL (140-400); RED BLOOD COUNT 4.09 x10^6/uL (3.50-5.40); WHITE BLOOD COUNT 9.7 x10^3/uL (4.0-11.0)
[2021-06-17 15:50] LABS: PROTHROMBIN TIME PATIENT 15.5 SEC (11.7-14.0)
[2021-06-17 15:56] LABS: CALCIUM 9.2 mg/dL (8.5-10.1); GFR 54.8; POTASSIUM 4.1 mmol/L (3.5-5.1)
[2021-06-17 16:09] LABS: ALBUMIN 4.3 g/dL (3.4-5.0); ALBUMIN/GLOBULIN RATIO 1.3 (1.0-1.7); MAGNESIUM 1.7 mg/dL (1.8-2.4); TOTAL BILIRUBIN 0.8 mg/dL (0.2-1.0); TOTAL PROTEIN 7.6 g/dL (6.4-8.2)
[2021-06-17 16:17] LABS: BILIRUBIN,URINE NEGATIVE (NEG); CLARITY,URINE CLEAR; COLOR,URINE STRAW; NITRITE,URINE NEGATIVE (NEG); PROTEIN,URINE NEGATIVE (NEG-TRACE); UROBILINOGEN,URINE 0.2 mg/dL (0.2 mg/dL)
[2021-06-17 16:19] LABS: HYALINE CASTS, URINE FEW /HPF
[2021-06-17 16:20] LABS: BACTERIA,URINE 0 /HPF (0-FEW); RBC,URINE OCC /HPF (0-2); WBC,URINE OCC /HPF (0-4)
[2021-06-17] MEDS ORDERED: CALCIUM CARBONATE 500 MG TAB.CHEW PO PRN (17:15)
[2021-06-17] MEDS ORDERED: ELECTROLYTE (NON-ICU) PROTOCOL. MC PRN (17:15)
[2021-06-17] MEDS ORDERED: ONDANSETRON PF 4 MG/2 ML VIAL. IVP PRN ×2 (17:15→18:00)
[2021-06-17] MEDS ORDERED: fentaNYL PF VIAL 100 MCG/2 ML VIAL IVP PRN (18:00)
[2021-06-17] MEDS ORDERED: dilTIAZem HCL 125 MG in IV DEXTROSE 5% 100ML 100 ML IV PRN (18:00)
--- NOTE | 2021-06-17 19:19 | PDOC1 ---
History and Physical Date of Service: DOS: DATE: 06/17/21 TIME: 19:19 Chief Complaint: Chief Complain: fall History of Present Illness: HPI: Patient 71-year-old female presented to the ED today after a fall at home. Patient reports she had just gotten up from using the bathroom was trying to wash her hands and got dizzy losing her balance causing her to fall. She did hit her forehead on the bathroom counter. Reports she did not lose consciousness. Says she had an ablation cardiac last week for A. fib. Otherwise when seen doing well minimal complaint. Past Medical/Surgical History: PMH/PSH: Past Medical History: A-Fib, Cancer, Diabetes-Type II, Hypothyroid Additional Past Medical Histor: TACHYCARDIA,SVT, BREAST CA WITH RADIATION AND CHEMO, pre-DM Past Surgical History: Tubal ligation Additional Past Surgical Histo: DOUBLE MASTECTOMY Smoking Status: Never Smoker Alcohol Use: None Drug Use: None Allergies: Allergies: Coded Allergies: Penicillins (Verified Allergy, Severe, RASH, 11/15/18) morphine (Verified Adverse Reaction, Severe, LOW BP, 08/23/20) prednisone (Verified Adverse Reaction, Severe, PALPITATIONS, 08/23/20) Family History: Family History: HTN Current Medications: Current Medications Current Medications Diltiazem HCl (Cardizem Iv Push) 20 mg 1X ONCE IVP Last administered on 06/17/21at 15:21; Start 06/17/21 at 14:45; Stop 06/17/21 at 14:46; Status DC Aspirin (Aspirin Chewable) 81 mg DAILY PO ; Start 06/18/21 at 09:00 Levothyroxine Sodium (Synthroid) 75 mcg DAILYAC PO ; Start 06/18/21 at 07:30 Lisinopril (Prinivil) 5 mg DAILY PO ; Start 06/18/21 at 09:00 Metformin HCl (Glucophage Xr) 500 mg DAILYWBKFT PO ; Start 06/18/21 at 08:00 Metoprolol Succinate (Toprol Xl) 50 mg DAILY PO ; Start 06/18/21 at 09:00 Simvastatin (Zocor) 40 mg HS PO ; Start 06/17/21 at 21:00 Flecainide Acetate (Tambocor) 100 mg Q12HR PO ; Start 06/17/21 at 21:00 Pantoprazole Sodium (Protonix) 40 mg DAILYAC PO ; Start 06/18/21 at 07:30 Apixaban (Eliquis) 5 mg BID PO ; Start 06/17/21 at 21:00 Ondansetron HCl (Zofran) 4 mg PRN Q6HRS PRN IVP NAUSEA/VOMITING; Start 06/17/21 at 17:15 Calcium Carbonate/ Glycine (Tums) 500 mg PRN Q3HRS PRN PO UPSET STOMACH; Start 06/17/21 at 17:15 Info (Non-Icu Electrolyte Protocol) 1 ea PRN DAILY PRN MC SEE COMMENTS; Start 06/17/21 at 17:15 Acetaminophen (Tylenol) 650 mg PRN Q6HRS PRN PO Headaches, Temp > 101.5F; Start 06/17/21 at 17:15 Senna/Docusate Sodium (Senna Plus) 1 tab BID PO ; Start 06/17/21 at 21:00 Ondansetron HCl (Zofran) 4 mg PRN Q8HRS PRN IVP NAUSEA/VOMITING; Start 06/17/21 at 18:00; Stop 06/18/21 at 17:59 Fentanyl Citrate (Fentanyl 2ml Vial) 50 mcg PRN Q1HR PRN IVP PAIN; Start 06/17/21 at 18:00; Stop 06/18/21 at 17:59 Diltiazem HCl 125 mg/Sodium Chloride 125 ml @ 5 mls/hr CONT PRN IV HR; Start 06/17/21 at 17:49; Status Cancel Diltiazem HCl 125 mg/Dextrose 125 ml @ 5 mls/hr CONT PRN IV HR Last administered on 06/17/21at 18:27; Start 06/17/21 at 18:00; Stop 06/17/21 at 18:30; Status DC Furosemide (Lasix) 40 mg DAILY IVP ; Start 06/18/21 at 09:00 Active Scripts Active Lisinopril 5 Mg Tablet 1 Tab PO DAILY 90 Days Flecainide Acetate 100 Mg Tablet 1 Tab PO BID 90 Days Reported Aspirin 81 Mg Tab.chew 1 Tab PO DAILY Metformin Hcl 500 Mg Tablet 500 Mg PO DAILY Omeprazole 20 Mg Tablet.dr 20 Mg PO DAILY Levothyroxine Sodium 75 Mcg Tablet 75 Mcg PO DAILYAC Exemestane 25 Mg Tablet 25 Mg PO DAILY Toprol XL (Metoprolol Succinate) 50 Mg Tab.er.24h 50 Mg PO DAILY Simvastatin 40 Mg Tablet 40 Mg PO HS ROS: Review of Systems Review of System Unless noted in HPI 14 point review systems is negative Physical Exam: Vital Signs: Vital Signs Date Time Temp Pulse Resp B/P (MAP) Pulse Ox O2 Delivery O2 Flow Rate FiO2 06/17/21 18:12 136 16 98 06/17/21 15:21 180/114 06/17/21 13:55 98.3 Room Air 98.3 Physcial Exam: GEN: No apparent distress. Alert and oriented HEENT: forehead bruising EYES: Extraocular muscles are intact, pupil are equally round and reactive to light and accommodation MUSCULOSKELETAL: Well developed , well nourished, good range of motion ENDOCRINE: No thyromegaly was palpated LYMPHATICS: No cervical chain or axillary nodes were noted HEMATOPOIETIC: No bruising NECK: Supple, no JVD, no thyromegaly was noted LUNGS: Clear to auscultation in all lung farfan without rhonchi or wheezing HEART: RRR, S!, S2 present. Peripheral pulses intact, no obvious murmurs noted ABDOMEN: Soft, nontender. Positive bowel sounds, no organomegaly, normal bowel sounds EXTREMITIES: Without clubbing, cyanosis, or edema. Pedal pulses intact. Negative Homans sign NEUROLOGIC: Normal speech and tone. A&O x 3, moves all extremities, no obvious focal deficits PSYCHIATRIC: Normal affect, normal mood. Stable SKIN: No ulcerations or rashes, good skin turgor, no jaundice VASCULAR: Good capillary refill, neurovascular bundle appears to be intact Labs: Labs: Laboratory Tests Test 06/17/21 15:10 06/17/21 16:02 06/17/21 17:50 White Blood Count 9.7 x10^3/uL (4.0-11.0) Red Blood Count 4.09 x10^6/uL (3.50-5.40) Hemoglobin 12.1 g/dL (12.0-15.5) Hematocrit 36.0 % (36.0-47.0) Mean Corpuscular Volume 88 fL (79-100) Mean Corpuscular Hemoglobin 30 pg (25-35) Mean Corpuscular Hemoglobin Concent 34 g/dL (31-37) Red Cell Distribution Width 14.0 % (11.5-14.5) Platelet Count 302 x10^3/uL (140-400) Neutrophils (%) (Auto) 85 % (31-73) Lymphocytes (%) (Auto) 8 % (24-48) Monocytes (%) (Auto) 7 % (0-9) Eosinophils (%) (Auto) 0 % (0-3) Basophils (%) (Auto) 0 % (0-3) Neutrophils # (Auto) 8.2 x10^3/uL (1.8-7.7) Lymphocytes # (Auto) 0.8 x10^3/uL (1.0-4.8) Monocytes # (Auto) 0.7 x10^3/uL (0.0-1.1) Eosinophils # (Auto) 0.0 x10^3/uL (0.0-0.7) Basophils # (Auto) 0.0 x10^3/uL (0.0-0.2) Prothrombin Time 15.5 SEC (11.7-14.0) Prothromb Time International Ratio 1.3 (0.8-1.1) Activated Partial Thromboplast Time 36 SEC (24-38) Sodium Level 134 mmol/L (136-145) Potassium Level 4.1 mmol/L (3.5-5.1) Chloride Level 97 mmol/L (98-107) Carbon Dioxide Level 26 mmol/L (21-32) Anion Gap 11 (6-14) Blood Urea Nitrogen 11 mg/dL (7-20) Creatinine 1.0 mg/dL (0.6-1.0) Estimated GFR (Cockcroft-Gault) 54.8 BUN/Creatinine Ratio 11 (6-20) Glucose Level 163 mg/dL (70-99) Calcium Level 9.2 mg/dL (8.5-10.1) Magnesium Level 1.7 mg/dL (1.8-2.4) Total Bilirubin 0.8 mg/dL (0.2-1.0) Aspartate Amino Transf (AST/SGOT) 20 U/L (15-37) Alanine Aminotransferase (ALT/SGPT) 22 U/L (14-59) Alkaline Phosphatase 54 U/L (46-116) Troponin I High Sensitivity 24 ng/L (4-50) 34 ng/L (4-50) IV-Nqu-C-Type Natriuretic Peptide 3091 pg/mL (0-124) Total Protein 7.6 g/dL (6.4-8.2) Albumin 4.3 g/dL (3.4-5.0) Albumin/Globulin Ratio 1.3 (1.0-1.7) Urine Collection Type Unknown Urine Color Straw Urine Clarity Clear Urine pH 7.0 (<5.0-8.0) Urine Specific [place] 1.015 (1.000-1.030) Urine Protein Negative mg/dL (NEG-TRACE) Urine Glucose (UA) Negative mg/dL (NEG) Urine Ketones (Stick) 40 mg/dL (NEG) Urine Blood Negative (NEG) Urine Nitrite Negative (NEG) Urine Bilirubin Negative (NEG) Urine Urobilinogen Dipstick 0.2 mg/dL (0.2 mg/dL) Urine Leukocyte Esterase Negative (NEG) Urine RBC Occ /HPF (0-2) Urine WBC Occ /HPF (0-4) Urine Squamous Epithelial Cells Few /LPF Urine Bacteria 0 /HPF (0-FEW) Urine Hyaline Casts Few /HPF Urine Mucus Slight /LPF Laboratory Tests Test 06/17/21 15:10 06/17/21 16:02 06/17/21 17:50 White Blood Count 9.7 x10^3/uL (4.0-11.0) Red Blood Count 4.09 x10^6/uL (3.50-5.40) Hemoglobin 12.1 g/dL (12.0-15.5) Hematocrit 36.0 % (36.0-47.0) Mean Corpuscular Volume 88 fL (79-100) Mean Corpuscular Hemoglobin 30 pg (25-35) Mean Corpuscular Hemoglobin Concent 34 g/dL (31-37) Red Cell Distribution Width 14.0 % (11.5-14.5) Platelet Count 302 x10^3/uL (140-400) Neutrophils (%) (Auto) 85 % (31-73) Lymphocytes (%) (Auto) 8 % (24-48) Monocytes (%) (Auto) 7 % (0-9) Eosinophils (%) (Auto) 0 % (0-3) Basophils (%) (Auto) 0 % (0-3) Neutrophils # (Auto) 8.2 x10^3/uL (1.8-7.7) Lymphocytes # (Auto) 0.8 x10^3/uL (1.0-4.8) Monocytes # (Auto) 0.7 x10^3/uL (0.0-1.1) Eosinophils # (Auto) 0.0 x10^3/uL (0.0-0.7) Basophils # (Auto) 0.0 x10^3/uL (0.0-0.2) Prothrombin Time 15.5 SEC (11.7-14.0) Prothromb Time International Ratio 1.3 (0.8-1.1) Activated Partial Thromboplast Time 36 SEC (24-38) Sodium Level 134 mmol/L (136-145) Potassium Level 4.1 mmol/L (3.5-5.1) Chloride Level 97 mmol/L (98-107) Carbon Dioxide Level 26 mmol/L (21-32) Anion Gap 11 (6-14) Blood Urea Nitrogen 11 mg/dL (7-20) Creatinine 1.0 mg/dL (0.6-1.0) Estimated GFR (Cockcroft-Gault) 54.8 BUN/Creatinine Ratio 11 (6-20) Glucose Level 163 mg/dL (70-99) Calcium Level 9.2 mg/dL (8.5-10.1) Magnesium Level 1.7 mg/dL (1.8-2.4) Total Bilirubin 0.8 mg/dL (0.2-1.0) Aspartate Amino Transf (AST/SGOT) 20 U/L (15-37) Alanine Aminotransferase (ALT/SGPT) 22 U/L (14-59) Alkaline Phosphatase 54 U/L (46-116) Troponin I High Sensitivity 24 ng/L (4-50) 34 ng/L (4-50) FL-Zyw-R-Type Natriuretic Peptide 3091 pg/mL (0-124) Total Protein 7.6 g/dL (6.4-8.2) Albumin 4.3 g/dL (3.4-5.0) Albumin/Globulin Ratio 1.3 (1.0-1.7) Urine Collection Type Unknown Urine Color Straw Urine Clarity Clear Urine pH 7.0 (<5.0-8.0) Urine Specific [place] 1.015 (1.000-1.030) Urine Protein Negative mg/dL (NEG-TRACE) Urine Glucose (UA) Negative mg/dL (NEG) Urine Ketones (Stick) 40 mg/dL (NEG) Urine Blood Negative (NEG) Urine Nitrite Negative (NEG) Urine Bilirubin Negative (NEG) Urine Urobilinogen Dipstick 0.2 mg/dL (0.2 mg/dL) Urine Leukocyte Esterase Negative (NEG) Urine RBC Occ /HPF (0-2) Urine WBC Occ /HPF (0-4) Urine Squamous Epithelial Cells Few /LPF Urine Bacteria 0 /HPF (0-FEW) Urine Hyaline Casts Few /HPF Urine Mucus Slight /LPF Assessment/Plan Assessment/Plan Mechanical fall, history A. fib type 2 diabetes hypothyroid Admit for further work-up PT OT Monitor on telemetry Patient uncertain if she is supposed to be continue Eliquis since her ablation. Please try to obtain records from this operation Home meds as indicated Cardiac diet 20 mi advanced care planning, patient endorses being a full code Justifications for Admission Other Justification DARNELL ALVES MD Jun 17, 2021 19:19
[2021-06-17 20:30] VITALS: BP_SYST 134; BP_DIAS 75; BP_DIAS 79
[2021-06-17 21:00] VITALS: BP 144/85
[2021-06-17] MEDS ORDERED: SIMVASTATIN 40 MG TABLET. PO SCH (21:00)
[2021-06-17] MEDS: SENNOSIDES/DOCUSATE 8.6/50MG TABLET. PO SCH (21:00)
[2021-06-17] MEDS ORDERED: LORazepam 0.5 MG TABLET PO PRN (21:15)
[2021-06-17] MEDS: ACETAMINOPHEN 325 MG TABLET. PO PRN (21:43)
[2021-06-17] MEDS: FLECAINIDE ACETATE 50 MG TABLET. PO SCH (21:45)
[2021-06-17] MEDS: APIXABAN 5 MG TABLET. PO SCH (21:45)
[2021-06-17 22:00] VITALS: BP 149/81
[2021-06-17 23:00] VITALS: BP 144/73
[2021-06-18] VITALS (10 sets, daily range): BP systolic 95–155; BP diastolic 50–79
[2021-06-18] MEDS ORDERED: dilTIAZem HCL 125 MG in IV DEXTROSE 5% 100ML 100 ML IV PRN (05:30)
[2021-06-18 06:05] LABS: BASO % 0 % (0-3); EOS % 0 % (0-3); HEMATOCRIT 32.2 % (36.0-47.0); LYMPH # 1.8 x10^3/uL (1.0-4.8); LYMPH % 27 % (24-48); MEAN CORPUSCULAR HEMOGLOBIN 30 pg (25-35); MEAN CORPUSCULAR HGB CONC 34 g/dL (31-37); MEAN CORPUSCULAR VOLUME 87 fL (79-100); MONO # 0.8 x10^3/uL (0.0-1.1); MONO % 12 % (0-9); NEUT # 4.1 x10^3/uL (1.8-7.7); NEUT % 61 % (31-73); PLATELET COUNT 281 x10^3/uL (140-400); RED BLOOD COUNT 3.69 x10^6/uL (3.50-5.40); RED CELL DISTRIBUTION WIDTH 13.8 % (11.5-14.5); WHITE BLOOD COUNT 6.7 x10^3/uL (4.0-11.0)
[2021-06-18 06:11] LABS: ALBUMIN 3.6 g/dL (3.4-5.0); ALBUMIN/GLOBULIN RATIO 1.1 (1.0-1.7); CALCIUM 8.5 mg/dL (8.5-10.1); GFR 54.8; POTASSIUM 3.6 mmol/L (3.5-5.1); TOTAL BILIRUBIN 0.7 mg/dL (0.2-1.0); TOTAL PROTEIN 6.8 g/dL (6.4-8.2)
[2021-06-18] MEDS ORDERED: LEVOTHYROXINE 75 MCG TABLET PO SCH (07:30)
[2021-06-18] MEDS: PANTOPRAZOLE 40 MG TABLET.DR. PO SCH (08:33)
[2021-06-18] MEDS: metFORMIN XR 500 MG TAB.ER.24H PO SCH (08:33)
[2021-06-18] MEDS: FLECAINIDE ACETATE 50 MG TABLET. PO SCH ×2 (08:35→20:20)
[2021-06-18] MEDS: APIXABAN 5 MG TABLET. PO SCH ×2 (08:55→20:20)
--- NOTE | 2021-06-18 08:56 | PDOC ---
[facility] PROGRESS NOTE Date of Service DOS: DATE: 06/18/21 TIME: 08:53 Chief Complaint Chief Complaint fall at home dizzy this AM Atrial fib with RVR, POA acute diastolic CHF type 2 diabetes hypomagnesesmia hypothyroid History of Present Illness History of Present Illness MMOF replace mag and K PT OT, she kind of refused after saying it is dangerous that she ilives alone has been on metoprolol and flecanide for over 20 years c telemetry Patient uncertain if she is supposed to be continue Eliquis since her ablation. Please try to obtain records from this operation Vitals/I&O Vitals/I&O: Vital Signs Date Time Temp Pulse Resp B/P (MAP) Pulse Ox O2 Delivery O2 Flow Rate FiO2 06/18/21 08:35 77 110/59 06/18/21 03:00 95 06/18/21 00:00 16 Room Air 06/17/21 23:00 97.0 97.0 I & O 06/17/21 06/17/21 06/18/21 15:00 23:00 07:00 Intake Total 120 ml 108 ml Balance 120 ml 108 ml Physical Exam General: Alert, Oriented X3, Cooperative, No acute distress Heart: Regular rate, Normal S2 Lungs: Wheezing Abdomen: Normal bowel sounds, Soft Extremities: No clubbing, No cyanosis Skin: No rashes, No breakdown Labs Labs: Laboratory Tests Test 06/17/21 15:10 06/17/21 16:02 06/17/21 17:50 06/17/21 20:55 White Blood Count 9.7 x10^3/uL (4.0-11.0) Red Blood Count 4.09 x10^6/uL (3.50-5.40) Hemoglobin 12.1 g/dL (12.0-15.5) Hematocrit 36.0 % (36.0-47.0) Mean Corpuscular Volume 88 fL (79-100) Mean Corpuscular Hemoglobin 30 pg (25-35) Mean Corpuscular Hemoglobin Concent 34 g/dL (31-37) Red Cell Distribution Width 14.0 % (11.5-14.5) Platelet Count 302 x10^3/uL (140-400) Neutrophils (%) (Auto) 85 % (31-73) Lymphocytes (%) (Auto) 8 % (24-48) Monocytes (%) (Auto) 7 % (0-9) Eosinophils (%) (Auto) 0 % (0-3) Basophils (%) (Auto) 0 % (0-3) Neutrophils # (Auto) 8.2 x10^3/uL (1.8-7.7) Lymphocytes # (Auto) 0.8 x10^3/uL (1.0-4.8) Monocytes # (Auto) 0.7 x10^3/uL (0.0-1.1) Eosinophils # (Auto) 0.0 x10^3/uL (0.0-0.7) Basophils # (Auto) 0.0 x10^3/uL (0.0-0.2) Prothrombin Time 15.5 SEC (11.7-14.0) Prothromb Time International Ratio 1.3 (0.8-1.1) Activated Partial Thromboplast Time 36 SEC (24-38) Sodium Level 134 mmol/L (136-145) Potassium Level 4.1 mmol/L (3.5-5.1) Chloride Level 97 mmol/L (98-107) Carbon Dioxide Level 26 mmol/L (21-32) Anion Gap 11 (6-14) Blood Urea Nitrogen 11 mg/dL (7-20) Creatinine 1.0 mg/dL (0.6-1.0) Estimated GFR (Cockcroft-Gault) 54.8 BUN/Creatinine Ratio 11 (6-20) Glucose Level 163 mg/dL (70-99) Calcium Level 9.2 mg/dL (8.5-10.1) Magnesium Level 1.7 mg/dL (1.8-2.4) Total Bilirubin 0.8 mg/dL (0.2-1.0) Aspartate Amino Transf (AST/SGOT) 20 U/L (15-37) Alanine Aminotransferase (ALT/SGPT) 22 U/L (14-59) Alkaline Phosphatase 54 U/L (46-116) Troponin I High Sensitivity 24 ng/L (4-50) 34 ng/L (4-50) 34 ng/L (4-50) ZB-Amd-F-Type Natriuretic Peptide 3091 pg/mL (0-124) Total Protein 7.6 g/dL (6.4-8.2) Albumin 4.3 g/dL (3.4-5.0) Albumin/Globulin Ratio 1.3 (1.0-1.7) Urine Collection Type Unknown Urine Color Straw Urine Clarity Clear Urine pH 7.0 (<5.0-8.0) Urine Specific [place] 1.015 (1.000-1.030) Urine Protein Negative mg/dL (NEG-TRACE) Urine Glucose (UA) Negative mg/dL (NEG) Urine Ketones (Stick) 40 mg/dL (NEG) Urine Blood Negative (NEG) Urine Nitrite Negative (NEG) Urine Bilirubin Negative (NEG) Urine Urobilinogen Dipstick 0.2 mg/dL (0.2 mg/dL) Urine Leukocyte Esterase Negative (NEG) Urine RBC Occ /HPF (0-2) Urine WBC Occ /HPF (0-4) Urine Squamous Epithelial Cells Few /LPF Urine Bacteria 0 /HPF (0-FEW) Urine Hyaline Casts Few /HPF Urine Mucus Slight /LPF Test 06/18/21 05:15 White Blood Count 6.7 x10^3/uL (4.0-11.0) Red Blood Count 3.69 x10^6/uL (3.50-5.40) Hemoglobin 11.0 g/dL (12.0-15.5) Hematocrit 32.2 % (36.0-47.0) Mean Corpuscular Volume 87 fL (79-100) Mean Corpuscular Hemoglobin 30 pg (25-35) Mean Corpuscular Hemoglobin Concent 34 g/dL (31-37) Red Cell Distribution Width 13.8 % (11.5-14.5) Platelet Count 281 x10^3/uL (140-400) Neutrophils (%) (Auto) 61 % (31-73) Lymphocytes (%) (Auto) 27 % (24-48) Monocytes (%) (Auto) 12 % (0-9) Eosinophils (%) (Auto) 0 % (0-3) Basophils (%) (Auto) 0 % (0-3) Neutrophils # (Auto) 4.1 x10^3/uL (1.8-7.7) Lymphocytes # (Auto) 1.8 x10^3/uL (1.0-4.8) Monocytes # (Auto) 0.8 x10^3/uL (0.0-1.1) Eosinophils # (Auto) 0.0 x10^3/uL (0.0-0.7) Basophils # (Auto) 0.0 x10^3/uL (0.0-0.2) Sodium Level 136 mmol/L (136-145) Potassium Level 3.6 mmol/L (3.5-5.1) Chloride Level 100 mmol/L (98-107) Carbon Dioxide Level 26 mmol/L (21-32) Anion Gap 10 (6-14) Blood Urea Nitrogen 12 mg/dL (7-20) Creatinine 1.0 mg/dL (0.6-1.0) Estimated GFR (Cockcroft-Gault) 54.8 BUN/Creatinine Ratio 12 (6-20) Glucose Level 132 mg/dL (70-99) Calcium Level 8.5 mg/dL (8.5-10.1) Total Bilirubin 0.7 mg/dL (0.2-1.0) Aspartate Amino Transf (AST/SGOT) 12 U/L (15-37) Alanine Aminotransferase (ALT/SGPT) 20 U/L (14-59) Alkaline Phosphatase 45 U/L (46-116) Total Protein 6.8 g/dL (6.4-8.2) Albumin 3.6 g/dL (3.4-5.0) Albumin/Globulin Ratio 1.1 (1.0-1.7) Review of Systems Review of Systems: no n./v.d weakness complains of left arm IV site is upset about being in ICU Assessment and Plan Assessmemt and Plan Problems Medical Problems: (1) Atrial fibrillation with RVR Status: Acute (2) CHF exacerbation Status: Acute Comment Review of Relevant I have reviewed the following items scarlet (where applicable) has been applied. Medications: Current Medications Medications (Trade) Dose Ordered Sig/Harrison Route PRN Reason Start Time Stop Time Status Last Admin Dose Admin Diltiazem HCl (Cardizem Iv Push) 20 mg 1X ONCE IVP 06/17/21 14:45 06/17/21 14:46 DC 06/17/21 15:21 Metformin HCl (Glucophage Xr) 500 mg DAILYWBKFT PO 06/18/21 08:00 06/18/21 08:33 Simvastatin (Zocor) 40 mg HS PO 06/17/21 21:00 06/17/21 21:45 Flecainide Acetate (Tambocor) 100 mg Q12HR PO 06/17/21 21:00 06/18/21 08:35 Pantoprazole Sodium (Protonix) 40 mg DAILYAC PO 06/18/21 07:30 06/18/21 08:33 Apixaban (Eliquis) 5 mg BID PO 06/17/21 21:00 06/17/21 21:45 Acetaminophen (Tylenol) 650 mg PRN Q6HRS PRN PO Headaches, Temp > 101.5F 06/17/21 17:15 06/17/21 21:43 Diltiazem HCl 125 mg/Dextrose 125 ml @ 5 mls/hr CONT PRN IV HR 06/17/21 18:00 06/17/21 18:30 DC 06/17/21 18:27 Lorazepam (Ativan) 0.5 mg PRN BID PRN PO Anxiety 06/17/21 21:15 06/17/21 21:43 Diltiazem HCl 125 mg/Dextrose 125 ml @ 5 mls/hr CONT PRN IV PER PROTOCOL 06/18/21 05:30 06/18/21 05:46 Justifications for Admission Other Justification TRUNG BATRES MD Jun 18, 2021 08:55
[2021-06-18] MEDS ORDERED: ASPIRIN CHEWABLE 81 MG TABLET. PO SCH (09:00)
[2021-06-18] MEDS ORDERED: LORazepam 0.5 MG TABLET PO PRN (09:00)
[2021-06-18] MEDS ORDERED: LISINOPRIL 5 MG TABLET. PO SCH (09:00)
[2021-06-18] MEDS: SENNOSIDES/DOCUSATE 8.6/50MG TABLET. PO SCH ×2 (09:00→20:19)
[2021-06-18] MEDS ORDERED: METOPROLOL SUCC 24HR ER 50 MG TAB.ER.24H. PO SCH (09:00)
[2021-06-18] MEDS ORDERED: FUROSEMIDE 40 MG/4 ML VIAL. IVP SCH (09:00)
[2021-06-18] MEDS ORDERED: MAGNESIUM SULFATE 2GM 50 ML IV ONE (09:00)
[2021-06-18] MEDS ORDERED: POTASSIUM CHLORIDE 20 MEQ TABLET.ER. PO ONE ×2 (09:00→16:30)
--- NOTE | 2021-06-18 10:45 | EKG ---
[facility] [address] [place] [address] Test Date: 2021-06-18 Test Time: 15:46:19 Pat Name: KAYLEN DARDEN Department: Room: 104 1 Gender: F Batt Packer: default user : [id number] Requested By: RAMON BRAR Order Number: [id number] Reading MD: Ritesh Jewell MD Measurements Intervals [place] Rate: 111 P: MS: QRS: -43 QRSD: 118 T: 77 QT: 352 QTc: 482 Interpretive Statements Atrial fibrillation with RVR Nonspecific ST-T wave changes Probable LVH Electronically Signed On 06-21-2021 17:57:34 CDT by Ritesh eJwell MD
[2021-06-18] MEDS ORDERED: IV NORMAL SALINE 250ML 250 ML IV ONE (12:00)
--- NOTE | 2021-06-18 12:05 | PDOC2 ---
ALEX JONES COMMERCIAL APPRAISER 06/18/21 1205: CARDIAC CONSULT DATE OF CONSULT Date of Consult DATE: 06/18/21 TIME: 11:32 REASON FOR CONSULT Reason for Consult: syncope, afib, decreased EF REFERRING PHYSICIAN Referring Physician: Christ SOURCE Source: Chart review, Patient HISTORY OF PRESENT ILLNESS HISTORY OF PRESENT ILLNESS This is a pleasant 71 yo female admitted for complains of dizziness. Reports that she was in the bathroom at around noon and felt funny and got dizzy and fell down and hit her right side of her head on a cabinet. Denies any palpitations, chest pain or SOA. She just had an ablation last week with Dr. Matute for SVT. No vertigo and she did not lose consciousness. PAST MEDICAL HISTORY Past Medical History Cardiovascular: HTN, Hyperlipidemia, Other (PSVT ), AFIB GI: GERD Heme/Onc: Cancer (breast ) Endocrine: Diabetes, Hypothyroidism PAST SURGICAL HISTORY Past Surgical History Hysterectomy, Other (mastectomy ), cardiac ablation FAMILY HISTORY Family History: Heart Disease (grandmother) SOCIAL HISTORY Smoke: No ALCOHOL: none Drugs: None Lives: with Family CURRENT MEDICATIONS CURRENT MEDICATIONS Current Medications Medications (Trade) Dose Ordered Sig/Harrison Route PRN Reason Start Time Stop Time Status Last Admin Dose Admin Diltiazem HCl (Cardizem Iv Push) 20 mg 1X ONCE IVP 06/17/21 14:45 06/17/21 14:46 DC 06/17/21 15:21 Metformin HCl (Glucophage Xr) 500 mg [id number] PO 06/18/21 08:00 06/18/21 08:33 Simvastatin (Zocor) 40 mg HS PO 06/17/21 21:00 06/18/21 09:57 DC 06/17/21 21:45 Flecainide Acetate (Tambocor) 100 mg Q12HR PO 06/17/21 21:00 06/18/21 08:35 Pantoprazole Sodium (Protonix) 40 mg DAILYAC PO 06/18/21 07:30 06/18/21 08:33 Apixaban (Eliquis) 5 mg BID PO 06/17/21 21:00 06/18/21 08:55 Acetaminophen (Tylenol) 650 mg PRN Q6HRS PRN PO Headaches, Temp > 101.5F 06/17/21 17:15 06/17/21 21:43 Diltiazem HCl 125 mg/Dextrose 125 ml @ 5 mls/hr CONT PRN IV HR 06/17/21 18:00 06/17/21 18:30 DC 06/17/21 18:27 Lorazepam (Ativan) 0.5 mg PRN BID PRN PO Anxiety 06/17/21 21:15 06/18/21 09:01 DC 06/17/21 21:43 Diltiazem HCl 125 mg/Dextrose 125 ml @ 5 mls/hr CONT PRN IV PER PROTOCOL 06/18/21 05:30 06/18/21 09:54 DC 06/18/21 05:46 Lorazepam (Ativan) 0.5 mg Q4HRS PRN PO Anxiety 06/18/21 09:00 06/18/21 09:04 DC 06/18/21 09:03 ALLERGIES ALLERGIES: Coded Allergies: Penicillins (Verified Allergy, Severe, RASH, 11/15/18) morphine (Verified Adverse Reaction, Severe, LOW BP, 08/23/20) prednisone (Verified Adverse Reaction, Severe, PALPITATIONS, 08/23/20) PHYSICAL EXAM General: Alert, Oriented X3, Cooperative, No acute distress HEENT: Atraumatic, Mucous membr. moist/pink Lungs: Clear to auscultation, Normal air movement Heart: Other (AFIB) Abdomen: Soft, No tenderness Extremities: No cyanosis, No edema Skin: No breakdown, Other (right forehead hematoma) Neuro: Normal speech, Sensation intact Psych/Mental Status: Mental status NL, Mood NL MUSCULOSKELETAL: Osteoarthritic changes both hands VITALS/I&O VITALS/I&O: Vital Signs Date Time Temp Pulse Resp B/P (MAP) Pulse Ox O2 Delivery O2 Flow Rate FiO2 06/18/21 08:35 77 110/59 06/18/21 03:00 95 06/18/21 00:00 16 Room Air 06/17/21 23:00 97.0 97.0 I & O 06/17/21 06/17/21 06/18/21 15:00 23:00 07:00 Intake Total 120 ml 108 ml Balance 120 ml 108 ml LABS Lab: Laboratory Tests Test 06/17/21 15:10 06/17/21 16:02 06/17/21 17:50 3/21/22 20:55 White Blood Count 9.7 x10^3/uL (4.0-11.0) Red Blood Count 4.09 x10^6/uL (3.50-5.40) Hemoglobin 12.1 g/dL (12.0-15.5) Hematocrit 36.0 % (36.0-47.0) Mean Corpuscular Volume 88 fL (79-100) Mean Corpuscular Hemoglobin 30 pg (25-35) Mean Corpuscular Hemoglobin Concent 34 g/dL (31-37) Red Cell Distribution Width 14.0 % (11.5-14.5) Platelet Count 302 x10^3/uL (140-400) Neutrophils (%) (Auto) 85 % (31-73) H Lymphocytes (%) (Auto) 8 % (24-48) L Monocytes (%) (Auto) 7 % (0-9) Eosinophils (%) (Auto) 0 % (0-3) Basophils (%) (Auto) 0 % (0-3) Neutrophils # (Auto) 8.2 x10^3/uL (1.8-7.7) H Lymphocytes # (Auto) 0.8 x10^3/uL (1.0-4.8) L Monocytes # (Auto) 0.7 x10^3/uL (0.0-1.1) Eosinophils # (Auto) 0.0 x10^3/uL (0.0-0.7) Basophils # (Auto) 0.0 x10^3/uL (0.0-0.2) Prothrombin Time 15.5 SEC (11.7-14.0) H Prothrombin Time INR 1.3 (0.8-1.1) H Activated Partial Thromboplast Time 36 SEC (24-38) Sodium Level 134 mmol/L (136-145) L Potassium Level 4.1 mmol/L (3.5-5.1) Chloride Level 97 mmol/L (98-107) L Carbon Dioxide Level 26 mmol/L (21-32) Anion Gap 11 (6-14) Blood Urea Nitrogen 11 mg/dL (7-20) Creatinine 1.0 mg/dL (0.6-1.0) Estimated GFR (Cockcroft-Gault) 54.8 BUN/Creatinine Ratio 11 (6-20) Glucose Level 163 mg/dL (70-99) H Calcium Level 9.2 mg/dL (8.5-10.1) Magnesium Level 1.7 mg/dL (1.8-2.4) L Total Bilirubin 0.8 mg/dL (0.2-1.0) Aspartate Amino Transferase (AST) 20 U/L (15-37) Alanine Aminotransferase (ALT) 22 U/L (14-59) Alkaline Phosphatase 54 U/L (46-116) Troponin I High Sensitivity 24 ng/L (4-50) 34 ng/L (4-50) 34 ng/L (4-50) ML-Iqm-D-Type Natriuretic Peptide 3091 pg/mL (0-124) H Total Protein 7.6 g/dL (6.4-8.2) Albumin 4.3 g/dL (3.4-5.0) Albumin/Globulin Ratio 1.3 (1.0-1.7) Urine Collection Type Unknown Urine Color Straw Urine Clarity Clear Urine pH 7.0 (<5.0-8.0) Urine Specific [place] 1.015 (1.000-1.030) Urine Protein Negative mg/dL (NEG-TRACE) Urine Glucose (UA) Negative mg/dL (NEG) Urine Ketones (Stick) 40 mg/dL (NEG) Urine Blood Negative (NEG) Urine Nitrite Negative (NEG) Urine Bilirubin Negative (NEG) Urine Urobilinogen Dipstick 0.2 mg/dL (0.2 mg/dL) Urine Leukocyte Esterase Negative (NEG) Urine RBC Occ /HPF (0-2) Urine WBC Occ /HPF (0-4) Urine Squamous Epithelial Cells Few /LPF Urine Bacteria 0 /HPF (0-FEW) Urine Hyaline Casts Few /HPF Urine Mucus Slight /LPF Test 06/18/21 05:15 White Blood Count 6.7 x10^3/uL (4.0-11.0) Red Blood Count 3.69 x10^6/uL (3.50-5.40) Hemoglobin 11.0 g/dL (12.0-15.5) L Hematocrit 32.2 % (36.0-47.0) L Mean Corpuscular Volume 87 fL (79-100) Mean Corpuscular Hemoglobin 30 pg (25-35) Mean Corpuscular Hemoglobin Concent 34 g/dL (31-37) Red Cell Distribution Width 13.8 % (11.5-14.5) Platelet Count 281 x10^3/uL (140-400) Neutrophils (%) (Auto) 61 % (31-73) Lymphocytes (%) (Auto) 27 % (24-48) Monocytes (%) (Auto) 12 % (0-9) H Eosinophils (%) (Auto) 0 % (0-3) Basophils (%) (Auto) 0 % (0-3) Neutrophils # (Auto) 4.1 x10^3/uL (1.8-7.7) Lymphocytes # (Auto) 1.8 x10^3/uL (1.0-4.8) Monocytes # (Auto) 0.8 x10^3/uL (0.0-1.1) Eosinophils # (Auto) 0.0 x10^3/uL (0.0-0.7) Basophils # (Auto) 0.0 x10^3/uL (0.0-0.2) Sodium Level 136 mmol/L (136-145) Potassium Level 3.6 mmol/L (3.5-5.1) Chloride Level 100 mmol/L (98-107) Carbon Dioxide Level 26 mmol/L (21-32) Anion Gap 10 (6-14) Blood Urea Nitrogen 12 mg/dL (7-20) Creatinine 1.0 mg/dL (0.6-1.0) Estimated GFR (Cockcroft-Gault) 54.8 BUN/Creatinine Ratio 12 (6-20) Glucose Level 132 mg/dL (70-99) H Calcium Level 8.5 mg/dL (8.5-10.1) Total Bilirubin 0.7 mg/dL (0.2-1.0) Aspartate Amino Transferase (AST) 12 U/L (15-37) L Alanine Aminotransferase (ALT) 20 U/L (14-59) Alkaline Phosphatase 45 U/L (46-116) L Total Protein 6.8 g/dL (6.4-8.2) Albumin 3.6 g/dL (3.4-5.0) Albumin/Globulin Ratio 1.1 (1.0-1.7) Laboratory Tests 06/17/21 15:10 06/18/21 05:15 Laboratory Tests 06/17/21 15:10 06/18/21 05:15 ASSESSMENT/PLAN ASSESSMENT/PLAN 1. Presyncope with fall sustaining right forehead contusion: suspect due to combination of AFIB and orthostasis 2. Persistent AFIB with RVR: 90-110. S/P ablation 06/11 3. Orthostasis: SBP 130s sitting and 80s standing. 4. Hypothyroidism: on replacement 5. DM2: per PCP 6. Hx of HTN and hyperlipidemia 7. Hx of presumed NICM: 10/17 EF at 45% Recommendations 1. NS bolus. Start mechanical compression and repeat readings 2. Continue flecainide, cardizem per EP. Stop lisinopril for now. Dig IV x1. Monitor BP trend. 3. Continue eliquis for stroke prevention 4. If remains in AFIB then will consider for CVN. CODI PIKE MD 06/19/21 0757: CARDIAC CONSULT ASSESSMENT/PLAN ASSESSMENT/PLAN Late entry for 06/18/2021 Patient seen and examined. Agree with above nurse practitioner note. 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 Continue aggressive medical therapy and if this does not achieve sinus rhythm we will plan for cardioversion. ALEX JONES APRN Jun 18, 2021 12:05 CODI PIKE MD Jun 19, 2021 07:57
[2021-06-18] MEDS ORDERED: DIGOXIN IV 500 MCG/2 ML AMPUL. IV ONE (12:15)
--- NOTE | 2021-06-18 16:11 | NUR ---
SS following for discharge planning. SS reviewed pt chart and discussed with pt RN. Pt is from home and is currently on room air. Cardiology consulted. PO medications. CVC downgrade. SS will continue to follow for discharge planning.
[2021-06-18] MEDS ORDERED: MAGNESIUM CHLORIDE ER 64 MG TABLET.ER PO ONE (17:00)
[2021-06-18] MEDS: LORazepam 0.5 MG TABLET PO PRN (19:28)
[2021-06-18] MEDS: ACETAMINOPHEN 325 MG TABLET. PO PRN (20:23)
[2021-06-18] MEDS ORDERED: ATORVASTATIN CALCIUM 20 MG TABLET PO SCH (21:00)
[2021-06-19 01:00] VITALS: BP 131/62
[2021-06-19 03:00] VITALS: BP 128/60
[2021-06-19] MEDS ORDERED: LEVOTHYROXINE 75 MCG TABLET PO SCH ×2 (06:00)
[2021-06-19 06:08] LABS: BASO % 0 % (0-3); EOS # 0.1 x10^3/uL (0.0-0.7); EOS % 1 % (0-3); HEMATOCRIT 29.8 % (36.0-47.0); HEMOGLOBIN 9.9 g/dL (12.0-15.5); LYMPH % 37 % (24-48); MEAN CORPUSCULAR HEMOGLOBIN 29 pg (25-35); MEAN CORPUSCULAR HGB CONC 33 g/dL (31-37); MEAN CORPUSCULAR VOLUME 88 fL (79-100); MONO # 0.5 x10^3/uL (0.0-1.1); MONO % 10 % (0-9); NEUT # 2.8 x10^3/uL (1.8-7.7); NEUT % 51 % (31-73); PLATELET COUNT 250 x10^3/uL (140-400); RED BLOOD COUNT 3.41 x10^6/uL (3.50-5.40); WHITE BLOOD COUNT 5.4 x10^3/uL (4.0-11.0)
[2021-06-19 06:30] LABS: ALBUMIN 3.4 g/dL (3.4-5.0); ALBUMIN/GLOBULIN RATIO 1.2 (1.0-1.7); CALCIUM 8.4 mg/dL (8.5-10.1); CREATININE 0.9 mg/dL (0.6-1.0); GFR 61.9; POTASSIUM 4.1 mmol/L (3.5-5.1); TOTAL BILIRUBIN 0.7 mg/dL (0.2-1.0); TOTAL PROTEIN 6.3 g/dL (6.4-8.2)
[2021-06-19 07:00] VITALS: BP 131/71
[2021-06-19] MEDS: FLECAINIDE ACETATE 50 MG TABLET. PO SCH (08:19)
[2021-06-19] MEDS: APIXABAN 5 MG TABLET. PO SCH (08:20)
[2021-06-19] MEDS: metFORMIN XR 500 MG TAB.ER.24H PO SCH (08:20)
[2021-06-19] MEDS: PANTOPRAZOLE 40 MG TABLET.DR. PO SCH (08:20)
[2021-06-19] MEDS: SENNOSIDES/DOCUSATE 8.6/50MG TABLET. PO SCH (08:20)
[2021-06-19] MEDS: ACETAMINOPHEN 325 MG TABLET. PO PRN (10:39)
[2021-06-19] MEDS: LORazepam 0.5 MG TABLET PO PRN (10:39)
[2021-06-19 11:00] VITALS: BP 144/71
--- NOTE | 2021-06-19 11:31 | PDOC ---
ALEX JONES AUTOMOBILE REPAIR SERVICE ESTIMATOR 06/19/21 1131: CARDIO Progress Notes Date and Time Date of Service 06/19/2021 Time of Evaluation 1120 Subjective Subjective: No Chest Pain, No shortness of breath, No Palpitations Vitals Vitals Vital Signs Date Time Temp Pulse Resp B/P (MAP) Pulse Ox O2 Delivery O2 Flow Rate FiO2 06/19/21 08:20 89 131/71 06/19/21 08:00 Room Air 06/19/21 07:00 98.3 16 98.3 06/18/21 09:00 96 Weight Weight [ ] Input and Output Intake and Output Intake and Output 06/19/21 07:00 Intake Total 1770 ml Output Total 0 ml Balance 1770 ml Intake Oral 1745 ml IV Total 25 ml Output Stool Total 0 ml # Voids 9 Laboratory Labs Laboratory Tests Test 06/19/21 04:20 White Blood Count 5.4 x10^3/uL (4.0-11.0) Red Blood Count 3.41 x10^6/uL (3.50-5.40) Hemoglobin 9.9 g/dL (12.0-15.5) Hematocrit 29.8 % (36.0-47.0) Mean Corpuscular Volume 88 fL (79-100) Mean Corpuscular Hemoglobin 29 pg (25-35) Mean Corpuscular Hemoglobin Concent 33 g/dL (31-37) Red Cell Distribution Width 14.0 % (11.5-14.5) Platelet Count 250 x10^3/uL (140-400) Neutrophils (%) (Auto) 51 % (31-73) Lymphocytes (%) (Auto) 37 % (24-48) Monocytes (%) (Auto) 10 % (0-9) Eosinophils (%) (Auto) 1 % (0-3) Basophils (%) (Auto) 0 % (0-3) Neutrophils # (Auto) 2.8 x10^3/uL (1.8-7.7) Lymphocytes # (Auto) 2.0 x10^3/uL (1.0-4.8) Monocytes # (Auto) 0.5 x10^3/uL (0.0-1.1) Eosinophils # (Auto) 0.1 x10^3/uL (0.0-0.7) Basophils # (Auto) 0.0 x10^3/uL (0.0-0.2) Sodium Level 131 mmol/L (136-145) Potassium Level 4.1 mmol/L (3.5-5.1) Chloride Level 98 mmol/L (98-107) Carbon Dioxide Level 25 mmol/L (21-32) Anion Gap 8 (6-14) Blood Urea Nitrogen 9 mg/dL (7-20) Creatinine 0.9 mg/dL (0.6-1.0) Estimated GFR (Cockcroft-Gault) 61.9 BUN/Creatinine Ratio 10 (6-20) Glucose Level 121 mg/dL (70-99) Calcium Level 8.4 mg/dL (8.5-10.1) Total Bilirubin 0.7 mg/dL (0.2-1.0) Aspartate Amino Transf (AST/SGOT) 17 U/L (15-37) Alanine Aminotransferase (ALT/SGPT) 17 U/L (14-59) Alkaline Phosphatase 45 U/L (46-116) Total Protein 6.3 g/dL (6.4-8.2) Albumin 3.4 g/dL (3.4-5.0) Albumin/Globulin Ratio 1.2 (1.0-1.7) Thyroid Stimulating Hormone (TSH) 2.918 uIU/mL (0.358-3.74) Physical Exam HEENT: Neck Supple W Full Motion Chest: Symmetric LUNGS: Clear to Auscultation Heart: S1S2, RRR (SR with first degree AV block) Abdomen: Soft N/T Extremities: No Edema, No Calf Tenderness Neurology: alert, oriented, follow commands Assessment Assessment 1. Presyncope with fall sustaining right forehead contusion: suspect due to combination of AFIB and orthostasis 2. Persistent AFIB with RVR: 90-110. S/P ablation 06/11. Converted to SR presently with long first degree AV block 3. Orthostasis: resolved after IV bolus 4. Hypothyroidism: on replacement 5. DM2: per PCP 6. Hx of HTN and hyperlipidemia 7. Hx of presumed NICM: 10/17 EF at 45% 8. Anemia: down trending Hgb at 9.9 Recommendations 1. Continue flecainide, cardizem per EP. May restart lisinopril but pt refusing as reports it makes her feel bad. Discussed HBPM and pt to call office if BP outside BP parameters. Repeat EKG and H/H 2. Continue eliquis for stroke prevention 3. Follow up in office Justicifation of Admission Dx: Justifications for Admission: Justification of Admission Dx: Yes CHF: Cardiac Arrhythmias CODI PIKE MD 06/19/21 6310: CARDIO Progress Notes Plan Plan Patient seen and examined. Agree with above nurse practitioner note. Patient is doing well ambulating without any significant problems. Heart rate is well controlled. She will follow-up with EP service at [place]. Routine follow-up in her office in 1 to 2 weeks. Supportive care for now. ALEX JONES APRN Jun 19, 2021 11:31 CODI PIKE MD Jun 19, 2021 21:50
--- NOTE | 2021-06-19 11:48 | EKG ---
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
[2021-06-19] MEDS ORDERED: DILT180C29 PO (13:46)
[2021-06-19] MEDS ORDERED: APIX5TAB PO (13:46)
--- NOTE | 2021-06-19 13:49 | PDOC3 ---
Discharge Summary Visit Information Date of Admission: Jun 17, 2021 Date of Discharge: Jun 19, 2021 Final Diagnosis fall at home dizzy this AM Atrial fib with RVR, POA acute diastolic CHF type 2 diabetes hypomagnesesmia hypothyroid MMOF replace mag and K Problems Medical Problems: (1) Atrial fibrillation with RVR Status: Acute (2) CHF exacerbation Status: Acute Brief Hospital Course Allergies Allergies Coded Allergies Type Severity Reaction Last Updated Verified Penicillins Allergy Severe RASH 11/15/18 Yes morphine Adverse Reaction Severe LOW BP 08/23/20 Yes prednisone Adverse Reaction Severe PALPITATIONS 08/23/20 Yes Vital Signs Vital Signs Date Time Temp Pulse Resp B/P (MAP) Pulse Ox O2 Delivery O2 Flow Rate FiO2 06/19/21 11:00 97.3 89 16 144/71 97.3 06/19/21 08:00 Room Air 06/18/21 09:00 96 Lab Results Laboratory Tests Test 06/17/21 15:10 06/17/21 16:02 06/17/21 17:50 06/17/21 20:55 White Blood Count 9.7 x10^3/uL (4.0-11.0) Red Blood Count 4.09 x10^6/uL (3.50-5.40) Hemoglobin 12.1 g/dL (12.0-15.5) Hematocrit 36.0 % (36.0-47.0) Mean Corpuscular Volume 88 fL (79-100) Mean Corpuscular Hemoglobin 30 pg (25-35) Mean Corpuscular Hemoglobin Concent 34 g/dL (31-37) Red Cell Distribution Width 14.0 % (11.5-14.5) Platelet Count 302 x10^3/uL (140-400) Neutrophils (%) (Auto) 85 % (31-73) Lymphocytes (%) (Auto) 8 % (24-48) Monocytes (%) (Auto) 7 % (0-9) Eosinophils (%) (Auto) 0 % (0-3) Basophils (%) (Auto) 0 % (0-3) Neutrophils # (Auto) 8.2 x10^3/uL (1.8-7.7) Lymphocytes # (Auto) 0.8 x10^3/uL (1.0-4.8) Monocytes # (Auto) 0.7 x10^3/uL (0.0-1.1) Eosinophils # (Auto) 0.0 x10^3/uL (0.0-0.7) Basophils # (Auto) 0.0 x10^3/uL (0.0-0.2) Prothrombin Time 15.5 SEC (11.7-14.0) Prothromb Time International Ratio 1.3 (0.8-1.1) Activated Partial Thromboplast Time 36 SEC (24-38) Sodium Level 134 mmol/L (136-145) Potassium Level 4.1 mmol/L (3.5-5.1) Chloride Level 97 mmol/L (98-107) Carbon Dioxide Level 26 mmol/L (21-32) Anion Gap 11 (6-14) Blood Urea Nitrogen 11 mg/dL (7-20) Creatinine 1.0 mg/dL (0.6-1.0) Estimated GFR (Cockcroft-Gault) 54.8 BUN/Creatinine Ratio 11 (6-20) Glucose Level 163 mg/dL (70-99) Calcium Level 9.2 mg/dL (8.5-10.1) Magnesium Level 1.7 mg/dL (1.8-2.4) Total Bilirubin 0.8 mg/dL (0.2-1.0) Aspartate Amino Transf (AST/SGOT) 20 U/L (15-37) Alanine Aminotransferase (ALT/SGPT) 22 U/L (14-59) Alkaline Phosphatase 54 U/L (46-116) Troponin I High Sensitivity 24 ng/L (4-50) 34 ng/L (4-50) 34 ng/L (4-50) FG-Dhq-R-Type Natriuretic Peptide 3091 pg/mL (0-124) Total Protein 7.6 g/dL (6.4-8.2) Albumin 4.3 g/dL (3.4-5.0) Albumin/Globulin Ratio 1.3 (1.0-1.7) Urine Collection Type Unknown Urine Color Straw Urine Clarity Clear Urine pH 7.0 (<5.0-8.0) Urine Specific [place] 1.015 (1.000-1.030) Urine Protein Negative mg/dL (NEG-TRACE) Urine Glucose (UA) Negative mg/dL (NEG) Urine Ketones (Stick) 40 mg/dL (NEG) Urine Blood Negative (NEG) Urine Nitrite Negative (NEG) Urine Bilirubin Negative (NEG) Urine Urobilinogen Dipstick 0.2 mg/dL (0.2 mg/dL) Urine Leukocyte Esterase Negative (NEG) Urine RBC Occ /HPF (0-2) Urine WBC Occ /HPF (0-4) Urine Squamous Epithelial Cells Few /LPF Urine Bacteria 0 /HPF (0-FEW) Urine Hyaline Casts Few /HPF Urine Mucus Slight /LPF Test 06/18/21 05:15 06/19/21 04:20 06/19/21 12:25 White Blood Count 6.7 x10^3/uL (4.0-11.0) 5.4 x10^3/uL (4.0-11.0) Red Blood Count 3.69 x10^6/uL (3.50-5.40) 3.41 x10^6/uL (3.50-5.40) Hemoglobin 11.0 g/dL (12.0-15.5) 9.9 g/dL (12.0-15.5) 11.0 g/dL (12.0-15.5) Hematocrit 32.2 % (36.0-47.0) 29.8 % (36.0-47.0) Mean Corpuscular Volume 87 fL (79-100) 88 fL (79-100) Mean Corpuscular Hemoglobin 30 pg (25-35) 29 pg (25-35) Mean Corpuscular Hemoglobin Concent 34 g/dL (31-37) 33 g/dL (31-37) Red Cell Distribution Width 13.8 % (11.5-14.5) 14.0 % (11.5-14.5) Platelet Count 281 x10^3/uL (140-400) 250 x10^3/uL (140-400) Neutrophils (%) (Auto) 61 % (31-73) 51 % (31-73) Lymphocytes (%) (Auto) 27 % (24-48) 37 % (24-48) Monocytes (%) (Auto) 12 % (0-9) 10 % (0-9) Eosinophils (%) (Auto) 0 % (0-3) 1 % (0-3) Basophils (%) (Auto) 0 % (0-3) 0 % (0-3) Neutrophils # (Auto) 4.1 x10^3/uL (1.8-7.7) 2.8 x10^3/uL (1.8-7.7) Lymphocytes # (Auto) 1.8 x10^3/uL (1.0-4.8) 2.0 x10^3/uL (1.0-4.8) Monocytes # (Auto) 0.8 x10^3/uL (0.0-1.1) 0.5 x10^3/uL (0.0-1.1) Eosinophils # (Auto) 0.0 x10^3/uL (0.0-0.7) 0.1 x10^3/uL (0.0-0.7) Basophils # (Auto) 0.0 x10^3/uL (0.0-0.2) 0.0 x10^3/uL (0.0-0.2) Sodium Level 136 mmol/L (136-145) 131 mmol/L (136-145) Potassium Level 3.6 mmol/L (3.5-5.1) 4.1 mmol/L (3.5-5.1) Chloride Level 100 mmol/L (98-107) 98 mmol/L (98-107) Carbon Dioxide Level 26 mmol/L (21-32) 25 mmol/L (21-32) Anion Gap 10 (6-14) 8 (6-14) Blood Urea Nitrogen 12 mg/dL (7-20) 9 mg/dL (7-20) Creatinine 1.0 mg/dL (0.6-1.0) 0.9 mg/dL (0.6-1.0) Estimated GFR (Cockcroft-Gault) 54.8 61.9 BUN/Creatinine Ratio 12 (6-20) 10 (6-20) Glucose Level 132 mg/dL (70-99) 121 mg/dL (70-99) Calcium Level 8.5 mg/dL (8.5-10.1) 8.4 mg/dL (8.5-10.1) Total Bilirubin 0.7 mg/dL (0.2-1.0) 0.7 mg/dL (0.2-1.0) Aspartate Amino Transf (AST/SGOT) 12 U/L (15-37) 17 U/L (15-37) Alanine Aminotransferase (ALT/SGPT) 20 U/L (14-59) 17 U/L (14-59) Alkaline Phosphatase 45 U/L (46-116) 45 U/L (46-116) Total Protein 6.8 g/dL (6.4-8.2) 6.3 g/dL (6.4-8.2) Albumin 3.6 g/dL (3.4-5.0) 3.4 g/dL (3.4-5.0) Albumin/Globulin Ratio 1.1 (1.0-1.7) 1.2 (1.0-1.7) Thyroid Stimulating Hormone (TSH) 2.918 uIU/mL (0.358-3.74) Laboratory Tests Test 06/19/21 04:20 06/19/21 12:25 White Blood Count 5.4 x10^3/uL (4.0-11.0) Red Blood Count 3.41 x10^6/uL (3.50-5.40) Hemoglobin 9.9 g/dL (12.0-15.5) 11.0 g/dL (12.0-15.5) Hematocrit 29.8 % (36.0-47.0) Mean Corpuscular Volume 88 fL (79-100) Mean Corpuscular Hemoglobin 29 pg (25-35) Mean Corpuscular Hemoglobin Concent 33 g/dL (31-37) Red Cell Distribution Width 14.0 % (11.5-14.5) Platelet Count 250 x10^3/uL (140-400) Neutrophils (%) (Auto) 51 % (31-73) Lymphocytes (%) (Auto) 37 % (24-48) Monocytes (%) (Auto) 10 % (0-9) Eosinophils (%) (Auto) 1 % (0-3) Basophils (%) (Auto) 0 % (0-3) Neutrophils # (Auto) 2.8 x10^3/uL (1.8-7.7) Lymphocytes # (Auto) 2.0 x10^3/uL (1.0-4.8) Monocytes # (Auto) 0.5 x10^3/uL (0.0-1.1) Eosinophils # (Auto) 0.1 x10^3/uL (0.0-0.7) Basophils # (Auto) 0.0 x10^3/uL (0.0-0.2) Sodium Level 131 mmol/L (136-145) Potassium Level 4.1 mmol/L (3.5-5.1) Chloride Level 98 mmol/L (98-107) Carbon Dioxide Level 25 mmol/L (21-32) Anion Gap 8 (6-14) Blood Urea Nitrogen 9 mg/dL (7-20) Creatinine 0.9 mg/dL (0.6-1.0) Estimated GFR (Cockcroft-Gault) 61.9 BUN/Creatinine Ratio 10 (6-20) Glucose Level 121 mg/dL (70-99) Calcium Level 8.4 mg/dL (8.5-10.1) Total Bilirubin 0.7 mg/dL (0.2-1.0) Aspartate Amino Transf (AST/SGOT) 17 U/L (15-37) Alanine Aminotransferase (ALT/SGPT) 17 U/L (14-59) Alkaline Phosphatase 45 U/L (46-116) Total Protein 6.3 g/dL (6.4-8.2) Albumin 3.4 g/dL (3.4-5.0) Albumin/Globulin Ratio 1.2 (1.0-1.7) Thyroid Stimulating Hormone (TSH) 2.918 uIU/mL (0.358-3.74) Brief Hospital Course Ms. Dominguez is a 71 old admit after a fall hx SVT on flecanide, now afib RVR, better after cardizem gtt, changed to PO sinus at DC Discharge Information Condition at Discharge: Improved Follow Up: Weeks Disposition/Orders: D/C to Home Scheduled Apixaban (Eliquis) 5 Mg Tablet, 5 MG PO BID for atrial fibrillation, #60 Ref 1 Prescribed by: TRUNG BATRES on 06/19/21 1346 Aspirin (Aspirin) 81 Mg Tab.chew, 1 TAB PO DAILY for HEART, #30 Ref 3 (Reported) Entered as Reported by: RUPINDER LUDWIG on 08/22/20 0110 Last Action: Continued on 06/17/21 170 by DARNELL ALVES MD Diltiazem Hcl (Diltiazem 24HR Cd) 180 Mg Cap.er.24h, 180 MG PO DAILY for rate control, #30 Ref 1 Prescribed by: TRUNG BATRES on 06/19/21 1346 Exemestane (Exemestane) 25 Mg Tablet, 25 MG PO DAILY for CA, (Reported) Entered as Reported by: RUPINDER LUDWIG on 08/22/20109 Last Action: HELD on 06/17/211703 by DARNELL ALVES MD Flecainide Acetate (Flecainide Acetate) 100 Mg Tablet, 1 TAB PO BID for HEART for 90 Days, #180 Ref 5 Prescribed by: DARNELL KAMARA MD on 08/23/20 1021 Last Action: Converted on 06/17/211703 by DARNELL ALVES MD Levothyroxine Sodium (Levothyroxine Sodium) 75 Mcg Tablet, 75 MCG PO DAILYAC for THYROID SUPPLEMENT, #30 Ref 0 (Reported) Entered as Reported by: RUPINDER LUDWIG on 08/22/20109 Last Action: Continued on 06/17/211703 by DARNELL ALVES MD Lisinopril (Lisinopril) 5 Mg Tablet, 1 TAB PO DAILY for CHF for 90 Days, #90 Ref 0 Prescribed by: DARNELL KAMARA MD on 08/23/205 Last Action: Continued on 06/17/211703 by DARNELL ALVES MD Metformin Hcl (Metformin Hcl) 500 Mg Tablet, 500 MG PO DAILY for ANTI-DIABETIC, Ref 0 (Reported) Entered as Reported by: RUPINDER LUDWIG on 08/22/20109 Last Action: Continued on 06/17/211703 by DARNELL ALVES MD Metoprolol Succinate (Toprol XL) 50 Mg Tab.er.24h, 50 MG PO DAILY for FOR HYPERTENSION, (Reported) Entered as Reported by: RUPINDER LUDWIG on 08/22/20109 Last Action: Continued on 06/17/211703 by DARNELL ALVES MD Omeprazole (Omeprazole) 20 Mg Tablet.dr, 20 MG PO DAILY for GERD, (Reported) Entered as Reported by: RUPINDER LUDWIG on 08/22/20109 Last Action: Converted on 06/17/211703 by DARNELL ALVES MD Simvastatin (Simvastatin) 40 Mg Tablet, 40 MG PO HS for FOR CHOLESTEROL, #30 Ref 0 (Reported) Entered as Reported by: RUPINDER LUDWIG on 5/26/21 0110 Last Action: Continued on 06/17/21 1704 by DARNELL ALVES MD Patient Instructions Patient Instructions f/u primary face to face 38 minutes total coordination, Justicifation of Admission Dx: Justifications for Admission: Justification of Admission Dx: Yes CHF: Cardiac Arrhythmias TRUNG BATRES MD Jun 19, 2021 13:49
--- NOTE | 2021-06-19 14:23 | NUR ---
Pt discharged home at this time. Pt ambulated to car. Pt's mother drove her home.
== END 2021-06-19 14:24 | disposition home or self-care (01) | DRG 308 ==
LOC: ER 13:51 → 1 WEST ICU 16:59
PROVIDERS: ADMIT Student in an Organized Health Care Education/Training Program; ATTEND Student in an Organized Health Care Education/Training Program
DX: I48.19 Other persistent atrial fibrillation (principal); I50.31 Acute diastolic (congestive) heart failure; E11.9 Type 2 diabetes mellitus without complications; D64.9 Anemia, unspecified; E03.9 Hypothyroidism, unspecified; E04.9 Nontoxic goiter, unspecified; E78.5 Hyperlipidemia, unspecified; I11.0 Hypertensive heart disease with heart failure; I42.8 Other cardiomyopathies; K21.9 Gastro-esophageal reflux disease without esophagitis; E83.42 Hypomagnesemia; I44.0 Atrioventricular block, first degree; W18.30XA Fall on same level, unspecified, initial encounter; S00.83XA Contusion of other part of head, initial encounter; Y92.009 Unspecified place in unspecified non-institutional (private) residence as the place of occurrence of the external cause; Z79.01 Long term (current) use of anticoagulants; Z88.5 Allergy status to narcotic agent; Z88.0 Allergy status to penicillin; Z88.8 Allergy status to other drugs, medicaments and biological substances; Z82.49 Family history of ischemic heart disease and other diseases of the circulatory system; Z85.3 Personal history of malignant neoplasm of breast; Z90.13 Acquired absence of bilateral breasts and nipples; Z90.710 Acquired absence of both cervix and uterus; Z98.51 Tubal ligation status; Y93.89 Activity, other specified; Y99.8 Other external cause status; Z92.21 Personal history of antineoplastic chemotherapy; Z92.3 Personal history of irradiation
CPT/HCPCS: 36415; 70450; 71045; 72125; 80053; 81001; 83735; 83880; 84443; 84484; 85018; 85025; 85610; 85730; 93005; 96365; 96376; J1160; J3490; J7060; 97535-GO; 99285-25; G0378

== ENCOUNTER 2021-07-12 10:17 | Inpatient (IN) | payer MEDICARE, OTHER ==
[~2021-07-12] VITALS: Ht 160 cm; Wt 65.5 kg
[~2021-07-12 10:17] MED LIST changes: +APIX5TAB PO; +DILT180C29 PO; -OMEP20TA8 PO; +OMEP20TA91 PO
[2021-07-12 10:51] LABS: BASO % 1 % (0-3); EOS % 0 % (0-3); HEMATOCRIT 37.4 % (36.0-47.0); HEMOGLOBIN 12.5 g/dL (12.0-15.5); LYMPH # 1.2 x10^3/uL (1.0-4.8); LYMPH % 22 % (24-48); MEAN CORPUSCULAR HEMOGLOBIN 29 pg (25-35); MEAN CORPUSCULAR HGB CONC 34 g/dL (31-37); MEAN CORPUSCULAR VOLUME 87 fL (79-100); MONO # 0.5 x10^3/uL (0.0-1.1); MONO % 9 % (0-9); NEUT # 3.8 x10^3/uL (1.8-7.7); NEUT % 68 % (31-73); PLATELET COUNT 271 x10^3/uL (140-400); RED BLOOD COUNT 4.32 x10^6/uL (3.50-5.40); RED CELL DISTRIBUTION WIDTH 13.3 % (11.5-14.5); WHITE BLOOD COUNT 5.6 x10^3/uL (4.0-11.0)
[2021-07-12 11:05] LABS: CALCIUM 8.7 mg/dL (8.5-10.1); CREATININE 0.9 mg/dL (0.6-1.0); GFR 61.9; POTASSIUM 3.9 mmol/L (3.5-5.1)
[2021-07-12 11:10] LABS: ALBUMIN/GLOBULIN RATIO 1.1 (1.0-1.7); TOTAL BILIRUBIN 0.6 mg/dL (0.2-1.0); TOTAL PROTEIN 7.8 g/dL (6.4-8.2)
--- NOTE | 2021-07-12 12:10 | PHYS DOC ---
Past Medical History Past Medical History: A-Fib, Cancer, Diabetes-Type II, Hypothyroid Additional Past Medical Histor: TACHYCARDIA,SVT, BREAST CA WITH RADIATION AND CHEMO, pre-DM Past Surgical History: Tubal ligation Additional Past Surgical Histo: DOUBLE MASTECTOMY, ablation Smoking Status: Never Smoker Alcohol Use: None Drug Use: None General Adult EDM: Chief Complaint: RAPID HEART RATE Problems: (1) Atrial fibrillation with RVR (2) Cardiomyopathy (3) PSVT (paroxysmal supraventricular tachycardia) (4) Dizziness HPI: HPI: Patient is a 71 year old F who presents with A. fib with RVR. Patient states that since last night she has felt like she has had a very fast heart rate. She has had no other symptoms. She is feeling well, no chest pain. She states that last month she had an ablation for SVT, she developed A. fib after the ablation. Otherwise patient is doing well. Review of Systems: Review of Systems: Constitutional: Denies fever or chills. Eyes: Denies change in visual acuity. HENT: Denies nasal congestion or sore throat. Respiratory: Denies cough or shortness of breath. Cardiovascular: Denies chest pain or edema. GI: Denies abdominal pain, nausea, vomiting, bloody stools or diarrhea. : Denies dysuria. Musculoskeletal: Denies back pain or joint pain. Integument: Denies rash. Neurologic: Denies headache, focal weakness or sensory changes. Endocrine: Denies polyuria or polydipsia. Lymphatic: Denies swollen glands. Psychiatric: Denies depression or anxiety. Heart Score: C/O Chest Pain: No Risk Factors: Risk Factors: DM, Current or recent (<one month) smoker, HTN, HLP, family history of CAD, obesity. Risk Scores: Score 0 - 3: 2.5% MACE over next 6 weeks - Discharge Home Score 4 - 6: 20.3% MACE over next 6 weeks - Admit for Clinical Observation Score 7 - 10: 72.7% MACE over next 6 weeks - Early Invasive Strategies Current Medications: Current Medications Medications (Trade) Dose Ordered Sig/Harrison Start Time Stop Time Status Last Admin Dose Admin Diltiazem HCl (Cardizem Iv Push) 20 mg 1X ONCE 07/12/21 10:30 07/12/21 10:31 DC 07/12/21 10:48 20 MG Allergies: Allergies: Allergies Coded Allergies Type Severity Reaction Last Updated Verified Penicillins Allergy Severe RASH 11/15/18 Yes morphine Adverse Reaction Severe LOW BP 08/23/20 Yes prednisone Adverse Reaction Severe PALPITATIONS 08/23/20 Yes Physical Exam: PE: Constitutional: Well developed, well nourished, no acute distress, non-toxic appearance. [] HENT: Normocephalic, atraumatic, bilateral external ears normal, oropharynx moist, no oral exudates, nose normal. [] Eyes: PERRLA, EOMI, conjunctiva normal, no discharge. [] Neck: Normal range of motion, no tenderness, supple, no stridor. [] Cardiovascular:Heart rate regular rhythm, no murmur [] Lungs & Thorax: Bilateral breath sounds clear to auscultation [] Abdomen: Bowel sounds normal, soft, no tenderness, no masses, no pulsatile ma sses. [] Skin: Warm, dry, no erythema, no rash. [] Back: No tenderness, no CVA tenderness. [] Extremities: No tenderness, no cyanosis, no clubbing, ROM intact, no edema. [] Neurologic: Alert and oriented X 3, normal motor function, normal sensory function, no focal deficits noted. [] Psychologic: Affect normal, judgement normal, mood normal. [] Current Patient Data: Labs: Laboratory Tests Test 07/12/21 10:38 White Blood Count 5.6 x10^3/uL (4.0-11.0) Red Blood Count 4.32 x10^6/uL (3.50-5.40) Hemoglobin 12.5 g/dL (12.0-15.5) Hematocrit 37.4 % (36.0-47.0) Mean Corpuscular Volume 87 fL (79-100) Mean Corpuscular Hemoglobin 29 pg (25-35) Mean Corpuscular Hemoglobin Concent 34 g/dL (31-37) Red Cell Distribution Width 13.3 % (11.5-14.5) Platelet Count 271 x10^3/uL (140-400) Neutrophils (%) (Auto) 68 % (31-73) Lymphocytes (%) (Auto) 22 % (24-48) L Monocytes (%) (Auto) 9 % (0-9) Eosinophils (%) (Auto) 0 % (0-3) Basophils (%) (Auto) 1 % (0-3) Neutrophils # (Auto) 3.8 x10^3/uL (1.8-7.7) Lymphocytes # (Auto) 1.2 x10^3/uL (1.0-4.8) Monocytes # (Auto) 0.5 x10^3/uL (0.0-1.1) Eosinophils # (Auto) 0.0 x10^3/uL (0.0-0.7) Basophils # (Auto) 0.0 x10^3/uL (0.0-0.2) Sodium Level 137 mmol/L (136-145) Potassium Level 3.9 mmol/L (3.5-5.1) Chloride Level 101 mmol/L (98-107) Carbon Dioxide Level 25 mmol/L (21-32) Anion Gap 11 (6-14) Blood Urea Nitrogen 9 mg/dL (7-20) Creatinine 0.9 mg/dL (0.6-1.0) Estimated GFR (Cockcroft-Gault) 61.9 BUN/Creatinine Ratio 10 (6-20) Glucose Level 167 mg/dL (70-99) H Calcium Level 8.7 mg/dL (8.5-10.1) Magnesium Level 2.0 mg/dL (1.8-2.4) Total Bilirubin 0.6 mg/dL (0.2-1.0) Aspartate Amino Transferase (AST) 18 U/L (15-37) Alanine Aminotransferase (ALT) 19 U/L (14-59) Alkaline Phosphatase 71 U/L (46-116) Troponin I High Sensitivity 15 ng/L (4-50) CX-Lsx-E-Type Natriuretic Peptide 3196 pg/mL (0-124) H Total Protein 7.8 g/dL (6.4-8.2) Albumin 4.0 g/dL (3.4-5.0) Albumin/Globulin Ratio 1.1 (1.0-1.7) Thyroid Stimulating Hormone (TSH) 2.113 uIU/mL (0.358-3.74) Laboratory Tests 07/12/21 10:38 Laboratory Tests 07/12/21 10:38 Vital Signs: Vital Signs Date Time Temp Pulse Resp B/P (MAP) Pulse Ox O2 Delivery O2 Flow Rate FiO2 07/12/21 10:48 132 172/84 07/12/21 10:29 97.2 20 97 Room Air 97.2 EKG: EKG: Afib w/ RVR Radiology/Procedures: Impression: 71-year-old female with A. fib with RVR Course & Med Decision Making: Course & Med Decision Making Pertinent Labs and Imaging studies reviewed. (See chart for details) Patient was given 20 mg of Cardizem, patient is now rate controlled in A. fib. 71-year-old female with A. fib with RVR, labs within normal limits, BNP elevated to 3000. Troponin normal. Patient is essentially asymptomatic. 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 Spoke to Dr. Friend, excepting physician. Patient will be admitted to telemetry floor. Alpesh Disclaimer: Alpesh Disclaimer: This electronic medical record was generated, in whole or in part, using a voice recognition dictation system. Departure Departure Disposition: ADMITTED INPATIENT Condition: GOOD Referrals: JANEL BUSTAMANTE MD (PCP) RAMESH ANDRES MD Jul 12, 2021 12:10
[2021-07-12 15:00] VITALS: BP 161/76
--- NOTE | 2021-07-12 15:31 | PDOC1 ---
History and Physical Date of Service: DOS: DATE: 07/12/21 TIME: 15:29 Chief Complaint: Chief Complain: Palpitations History of Present Illness: HPI: 71 year old F who presents with A. fib with RVR. Patient states that since last night she has felt like she has had a very fast heart rate. She has had no other symptoms. She is feeling well, no chest pain. She states that last month she had an ablation for SVT, she developed A. fib after the ablation. Otherwise patient is doing well. Past Medical/Surgical History: PMH/PSH: Past Medical History: A-Fib, Cancer, Diabetes-Type II, Hypothyroid, T ACHYCARDIA,SVT, BREAST CA WITH RADIATION AND CHEMO, pre-DM Past Surgical History: Tubal ligation, DOUBLE MASTECTOMY, ablation Allergies: Allergies: Coded Allergies: Penicillins (Verified Allergy, Severe, RASH, 11/15/18) morphine (Verified Adverse Reaction, Severe, LOW BP, 08/23/20) prednisone (Verified Adverse Reaction, Severe, PALPITATIONS, 08/23/20) Family History: Family History: Reviewed with no relative finding in the chart Social History: Social History: Smoking Status: Never Smoker Alcohol Use: None Drug Use: None Current Medications: Current Medications Current Medications Diltiazem HCl (Cardizem Iv Push) 20 mg 1X ONCE IVP Last administered on 07/12/21at 10:48; Start 07/12/21 at 10:30; Stop 07/12/21 at 10:31; Status DC Active Scripts Active Eliquis (Apixaban) 5 Mg Tablet 5 Mg PO BID Diltiazem 24HR Cd (Diltiazem Hcl) 180 Mg Cap.er.24h 180 Mg PO DAILY Flecainide Acetate 100 Mg Tablet 1 Tab PO BID 90 Days Reported Metformin Hcl 500 Mg Tablet 500 Mg PO DAILY Omeprazole 20 Mg Tablet.dr 20 Mg PO DAILY Levothyroxine Sodium 75 Mcg Tablet 75 Mcg PO DAILYAC Exemestane 25 Mg Tablet 25 Mg PO DAILY Simvastatin 40 Mg Tablet 40 Mg PO HS ROS: Review of Systems Review of System REVIEW OF SYSTEMS: GENERAL: Denies weakness SKIN: No bruising, hair changes or rashes. EYES: No blurred, double or loss of vision. NOSE AND THROAT: No history of nosebleeds, hoarseness or sore throat. HEART: No history of palpitations, chest pain or shortness of breath on exertion. LUNGS: Denies cough, hemoptysis, wheezing or shortness of breath. GASTROINTESTINAL: Denies changes in appetite, nausea, vomiting, diarrhea or constipation. GENITOURINARY: No history of frequency, urgency, hesitancy or nocturia. NEUROLOGIC: Denies history of numbness, tingling, or tremor. PSYCHIATRIC: No history of panic, anxiety or depression. ENDOCRINE: No history of heat or cold intolerance, polyuria or polydipsia. EXTREMITIES: Denies joint pain, pain on walking or stiffness. Physical Exam: Vital Signs: Vital Signs Date Time Temp Pulse Resp B/P (MAP) Pulse Ox O2 Delivery O2 Flow Rate FiO2 07/12/21 13:21 96 98 07/12/21 10:48 172/84 07/12/21 10:29 97.2 20 Room Air 97.2 Physcial Exam: General: Well developed, well nourished, no acute distress, well appearing HEENT: Pupils equally round and reactive to light, EOMI, no discharge, normal conjunctiva Neck: Supple, no nuchal rigidity, no JVD, trachea midline, no tenderness Cardiac: Irregularly irregular, no murmurs, no gallops, no rubs Chest/Lungs: CTAB, no wheeze, no rhonchi, no crackles Abdomen: soft, non-distended, no guarding, no peritoneal signs, non-tender Back: No tenderness Extremities: no edema, pulses intact, non-tender,capillary refill <3 sec bilateral upper and lower extremities, Neuro: Alert and oriented x 4, no focal deficits, normal speech Labs: Labs: Laboratory Tests Test 07/12/21 10:38 07/12/21 13:07 White Blood Count 5.6 x10^3/uL (4.0-11.0) Red Blood Count 4.32 x10^6/uL (3.50-5.40) Hemoglobin 12.5 g/dL (12.0-15.5) Hematocrit 37.4 % (36.0-47.0) Mean Corpuscular Volume 87 fL (79-100) Mean Corpuscular Hemoglobin 29 pg (25-35) Mean Corpuscular Hemoglobin Concent 34 g/dL (31-37) Red Cell Distribution Width 13.3 % (11.5-14.5) Platelet Count 271 x10^3/uL (140-400) Neutrophils (%) (Auto) 68 % (31-73) Lymphocytes (%) (Auto) 22 % (24-48) Monocytes (%) (Auto) 9 % (0-9) Eosinophils (%) (Auto) 0 % (0-3) Basophils (%) (Auto) 1 % (0-3) Neutrophils # (Auto) 3.8 x10^3/uL (1.8-7.7) Lymphocytes # (Auto) 1.2 x10^3/uL (1.0-4.8) Monocytes # (Auto) 0.5 x10^3/uL (0.0-1.1) Eosinophils # (Auto) 0.0 x10^3/uL (0.0-0.7) Basophils # (Auto) 0.0 x10^3/uL (0.0-0.2) Sodium Level 137 mmol/L (136-145) Potassium Level 3.9 mmol/L (3.5-5.1) Chloride Level 101 mmol/L (98-107) Carbon Dioxide Level 25 mmol/L (21-32) Anion Gap 11 (6-14) Blood Urea Nitrogen 9 mg/dL (7-20) Creatinine 0.9 mg/dL (0.6-1.0) Estimated GFR (Cockcroft-Gault) 61.9 BUN/Creatinine Ratio 10 (6-20) Glucose Level 167 mg/dL (70-99) Calcium Level 8.7 mg/dL (8.5-10.1) Magnesium Level 2.0 mg/dL (1.8-2.4) Total Bilirubin 0.6 mg/dL (0.2-1.0) Aspartate Amino Transf (AST/SGOT) 18 U/L (15-37) Alanine Aminotransferase (ALT/SGPT) 19 U/L (14-59) Alkaline Phosphatase 71 U/L (46-116) Troponin I High Sensitivity 15 ng/L (4-50) 17 ng/L (4-50) TC-Toq-N-Type Natriuretic Peptide 3196 pg/mL (0-124) Total Protein 7.8 g/dL (6.4-8.2) Albumin 4.0 g/dL (3.4-5.0) Albumin/Globulin Ratio 1.1 (1.0-1.7) Thyroid Stimulating Hormone (TSH) 2.113 uIU/mL (0.358-3.74) Laboratory Tests Test 07/12/21 10:38 07/12/21 13:07 White Blood Count 5.6 x10^3/uL (4.0-11.0) Red Blood Count 4.32 x10^6/uL (3.50-5.40) Hemoglobin 12.5 g/dL (12.0-15.5) Hematocrit 37.4 % (36.0-47.0) Mean Corpuscular Volume 87 fL (79-100) Mean Corpuscular Hemoglobin 29 pg (25-35) Mean Corpuscular Hemoglobin Concent 34 g/dL (31-37) Red Cell Distribution Width 13.3 % (11.5-14.5) Platelet Count 271 x10^3/uL (140-400) Neutrophils (%) (Auto) 68 % (31-73) Lymphocytes (%) (Auto) 22 % (24-48) Monocytes (%) (Auto) 9 % (0-9) Eosinophils (%) (Auto) 0 % (0-3) Basophils (%) (Auto) 1 % (0-3) Neutrophils # (Auto) 3.8 x10^3/uL (1.8-7.7) Lymphocytes # (Auto) 1.2 x10^3/uL (1.0-4.8) Monocytes # (Auto) 0.5 x10^3/uL (0.0-1.1) Eosinophils # (Auto) 0.0 x10^3/uL (0.0-0.7) Basophils # (Auto) 0.0 x10^3/uL (0.0-0.2) Sodium Level 137 mmol/L (136-145) Potassium Level 3.9 mmol/L (3.5-5.1) Chloride Level 101 mmol/L (98-107) Carbon Dioxide Level 25 mmol/L (21-32) Anion Gap 11 (6-14) Blood Urea Nitrogen 9 mg/dL (7-20) Creatinine 0.9 mg/dL (0.6-1.0) Estimated GFR (Cockcroft-Gault) 61.9 BUN/Creatinine Ratio 10 (6-20) Glucose Level 167 mg/dL (70-99) Calcium Level 8.7 mg/dL (8.5-10.1) Magnesium Level 2.0 mg/dL (1.8-2.4) Total Bilirubin 0.6 mg/dL (0.2-1.0) Aspartate Amino Transf (AST/SGOT) 18 U/L (15-37) Alanine Aminotransferase (ALT/SGPT) 19 U/L (14-59) Alkaline Phosphatase 71 U/L (46-116) Troponin I High Sensitivity 15 ng/L (4-50) 17 ng/L (4-50) IQ-Ozg-P-Type Natriuretic Peptide 3196 pg/mL (0-124) Total Protein 7.8 g/dL (6.4-8.2) Albumin 4.0 g/dL (3.4-5.0) Albumin/Globulin Ratio 1.1 (1.0-1.7) Thyroid Stimulating Hormone (TSH) 2.113 uIU/mL (0.358-3.74) Images: Images Pending chest x-ray Assessment/Plan Assessment/Plan A. fib RVR History of PA fib on Eliquis History of diabetes mellitus type 2 History of hypothyroidism History of diastolic systolic CHF, LVEF of 45% and grade 1 abnormal relaxation pattern on echo 10/08/2020 Admit to hospitalist service for further management Cardiology consulted for possible cardioversion over the weekend Continue telemetry monitoring Resume home diltiazem Hold flecainide Pending TSH Eliquis for DVT prophylaxis ADA diet CODE STATUS full Discussed with RN and SW Disposition inpatient management as above DPOA: [id number] Justifications for Admission Other Justification FARZANEH PICKARD MD Jul 12, 2021 15:31
[2021-07-12] MEDS ORDERED: DEXTROSE 50% 25 GM / 50ML DISP.SYRIN. IV PRN (15:45)
[2021-07-12] MEDS ORDERED: diphenhydrAMINE HCL 25 MG CAPSULE PO PRN ×2 (15:45)
[2021-07-12] MEDS ORDERED: ZOLPIDEM 5 MG TABLET. PO PRN (15:45)
[2021-07-12] MEDS ORDERED: diphenhydrAMINE 50 MG/ML VIAL IVP PRN (15:45)
[2021-07-12] MEDS ORDERED: ONDANSETRON PF 4 MG/2 ML VIAL. IVP PRN (15:45)
[2021-07-12] MEDS ORDERED: ACETAMINOPHEN 325 MG TABLET. PO PRN (15:45)
[2021-07-12] MEDS ORDERED: SENNOSIDES 8.6 MG TABLET PO PRN (15:45)
[2021-07-12] MEDS ORDERED: DOCUSATE SODIUM 100 MG CAPSULE. PO PRN (15:45)
[2021-07-12] MEDS ORDERED: PROCHLORPERAZINE 10 MG/2 ML VIAL. IV PRN (15:45)
[2021-07-12] MEDS: INSULIN LISPRO 300 UNITS/3 ML VIAL. SQ SCH (17:00)
--- NOTE | 2021-07-12 17:13 | RAD ---
AP chest. HISTORY: Palpitations Portable AP view was taken of the chest. Lungs are free of infiltrates. Heart is normal in size. Ther e is no effusion. IMPRESSION: 1. No acute chest disease. Electronically signed by: Giacomo Son MD (07/12/2021 5:11 PM) [facility]
--- NOTE | 2021-07-12 17:36 | NUR ---
Patient refused to have blood sugar drawn stating that she is no longer checking her blood sugar at home et does not want it checked at this time.
[2021-07-12 19:46] VITALS: BP 148/74
[2021-07-12] MEDS: APIXABAN 5 MG TABLET. PO SCH (21:35)
[2021-07-12] MEDS: ATORVASTATIN CALCIUM 20 MG TABLET PO SCH (21:35)
[2021-07-12] MEDS: AMIODARONE HCL 200 MG TABLET. PO SCH (21:35)
[2021-07-12] MEDS: LORazepam 0.5 MG TABLET PO PRN (21:40)
--- NOTE | 2021-07-12 22:07 | PDOC ---
CARDIOLOGY PROGRESS NOTE SUBJECTIVE: Patient well known to our service. Returns with recurrent afib. Denies any chest pain or dyspnea. Recently seen by Dannie HAWTHORNE. No changes made at that time. OBJECTIVE: Vital Signs/I&O: Vital Signs Date Time Temp Pulse Resp B/P (MAP) Pulse Ox O2 Delivery O2 Flow Rate FiO2 07/12/21 21:35 83 148/74 07/12/21 19:46 98.2 18 98 Room Air 98.2 Objective: GEN.: No apparent distress. Alert and oriented. HEENT: Head is normocephalic, atraumatic NECK: Supple. LUNGS: Clear to auscultation. HEART: RRR, S1, S2 present. Peripheral pulses intact ABDOMEN: Soft, nontender. Positive bowel sounds. EXTREMITIES: Without any cyanosis. NEUROLOGIC: Normal speech, normal tone PSYCHIATRIC: Normal affect, normal mood. SKIN: No ulcerations CURRENT MEDICATIONS: Current Medications Medications (Trade) Dose Ordered Sig/Harrison Route PRN Reason Start Time Stop Time Status Last Admin Dose Admin Diltiazem HCl (Cardizem Iv Push) 20 mg 1X ONCE IVP 07/12/21 10:30 07/12/21 10:31 DC 07/12/21 10:48 Lorazepam (Ativan) 0.5 mg PRN Q6HRS PRN PO ANXIETY / AGITATION 07/12/21 15:45 07/12/21 21:40 Apixaban (Eliquis) 5 mg BID PO 07/12/21 21:00 07/12/21 21:35 Atorvastatin Calcium (Lipitor) 20 mg QHS PO 07/12/21 21:00 07/12/21 21:35 Amiodarone HCl (Cordarone) 200 mg BID PO 07/12/21 21:00 07/12/21 21:35 DIAGNOSTIC TESTING: labs reviewed Labs: Laboratory Tests 07/12/21 10:38 Laboratory Tests Test 07/12/21 10:38 07/12/21 13:07 07/12/21 15:35 07/12/21 16:06 White Blood Count 5.6 x10^3/uL (4.0-11.0) Red Blood Count 4.32 x10^6/uL (3.50-5.40) Hemoglobin 12.5 g/dL (12.0-15.5) Hematocrit 37.4 % (36.0-47.0) Mean Corpuscular Volume 87 fL (79-100) Mean Corpuscular Hemoglobin 29 pg (25-35) Mean Corpuscular Hemoglobin Concent 34 g/dL (31-37) Red Cell Distribution Width 13.3 % (11.5-14.5) Platelet Count 271 x10^3/uL (140-400) Neutrophils (%) (Auto) 68 % (31-73) Lymphocytes (%) (Auto) 22 % (24-48) L Monocytes (%) (Auto) 9 % (0-9) Eosinophils (%) (Auto) 0 % (0-3) Basophils (%) (Auto) 1 % (0-3) Neutrophils # (Auto) 3.8 x10^3/uL (1.8-7.7) Lymphocytes # (Auto) 1.2 x10^3/uL (1.0-4.8) Monocytes # (Auto) 0.5 x10^3/uL (0.0-1.1) Eosinophils # (Auto) 0.0 x10^3/uL (0.0-0.7) Basophils # (Auto) 0.0 x10^3/uL (0.0-0.2) Sodium Level 137 mmol/L (136-145) Potassium Level 3.9 mmol/L (3.5-5.1) Chloride Level 101 mmol/L (98-107) Carbon Dioxide Level 25 mmol/L (21-32) Anion Gap 11 (6-14) Blood Urea Nitrogen 9 mg/dL (7-20) Creatinine 0.9 mg/dL (0.6-1.0) Estimated GFR (Cockcroft-Gault) 61.9 BUN/Creatinine Ratio 10 (6-20) Glucose Level 167 mg/dL (70-99) H Calcium Level 8.7 mg/dL (8.5-10.1) Total Bilirubin 0.6 mg/dL (0.2-1.0) Aspartate Amino Transf (AST/SGOT) 18 U/L (15-37) Alkaline Phosphatase 71 U/L (46-116) Troponin I High Sensitivity 15 ng/L (4-50) 17 ng/L (4-50) 21 ng/L (4-50) Total Protein 7.8 g/dL (6.4-8.2) Albumin 4.0 g/dL (3.4-5.0) Albumin/Globulin Ratio 1.1 (1.0-1.7) Thyroid Stimulating Hormone (TSH) 2.113 uIU/mL (0.358-3.74) 2.057 uIU/mL (0.358-3.74) ASSESSMENT: 1. PAF 2. s/p SVT ablation 3. HTN PLAN: 1. Stop flecainide and start amio. Supportive care. 2. Continue anticoagulation. Justicifation of Admission Dx: Justifications for Admission: Justification of Admission Dx: Yes CHF: Cardiac Arrhythmias CODI PIKE MD Jul 12, 2021 22:07
[2021-07-12 22:38] VITALS: BP 148/66
[2021-07-13 02:56] VITALS: BP 115/52
[2021-07-13 04:27] LABS: BASO % 0 % (0-3); EOS # 0.1 x10^3/uL (0.0-0.7); EOS % 1 % (0-3); HEMATOCRIT 31.9 % (36.0-47.0); HEMOGLOBIN 10.8 g/dL (12.0-15.5); LYMPH # 1.9 x10^3/uL (1.0-4.8); LYMPH % 34 % (24-48); MEAN CORPUSCULAR HEMOGLOBIN 29 pg (25-35); MEAN CORPUSCULAR HGB CONC 34 g/dL (31-37); MEAN CORPUSCULAR VOLUME 87 fL (79-100); MONO # 0.5 x10^3/uL (0.0-1.1); MONO % 10 % (0-9); NEUT # 3.1 x10^3/uL (1.8-7.7); NEUT % 55 % (31-73); PLATELET COUNT 232 x10^3/uL (140-400); RED BLOOD COUNT 3.65 x10^6/uL (3.50-5.40); RED CELL DISTRIBUTION WIDTH 13.4 % (11.5-14.5); WHITE BLOOD COUNT 5.7 x10^3/uL (4.0-11.0)
[2021-07-13 05:10] LABS: CALCIUM 8.2 mg/dL (8.5-10.1); GFR 54.8; PHOSPHORUS 3.7 mg/dL (2.6-4.7); POTASSIUM 3.4 mmol/L (3.5-5.1)
--- NOTE | 2021-07-13 07:00 | EKG ---
[facility] [address] [place] [address] Test Date: 2021-07-12 Test Time: 10:28:32 Pat Name: KAYLEN DARDEN Department: Room: [facility] Gender: F Damage Prevention Coordinator: : 1950 Requested By: RAMESH Mancini Number: [id number] Reading MD: Kosta Yadav Measurements Intervals [place] Rate: 126 P: NM: QRS: -43 QRSD: 122 T: 70 QT: 328 QTc: 482 Interpretive Statements ATRIAL FIBRILLATION WITH RVR ABNORMAL LEFT AXIS DEVIATION LEFT ANTERIOR FASCICULAR BLOCK LVH WITH REPOLARIZATION ABNORMALITY QRS(T) CONTOUR ABNORMALITY CONSIDER ANTEROSEPTAL MYOCARDIAL DAMAGE ABNORMAL ECG Electronically Signed On 07-13-2021 8:56:17 CDT by Kosta Yadav
[2021-07-13 07:59] VITALS: BP 150/72
[2021-07-13] MEDS: INSULIN LISPRO 300 UNITS/3 ML VIAL. SQ SCH ×3 (08:00→17:00)
[2021-07-13] MEDS: AMIODARONE HCL 200 MG TABLET. PO SCH ×2 (09:00→22:06)
[2021-07-13] MEDS: PANTOPRAZOLE 40 MG TABLET.DR. PO SCH (09:00)
[2021-07-13] MEDS ORDERED: NON FORMULARY ITEM (Exemestane 25 MG) PO SCH (09:00)
[2021-07-13] MEDS: metFORMIN 500 MG TABLET PO SCH (09:00)
[2021-07-13] MEDS: APIXABAN 5 MG TABLET. PO SCH ×2 (09:01→22:06)
[2021-07-13] MEDS ORDERED: LOSARTAN POTASSIUM 25 MG TABLET. PO SCH (09:15)
[2021-07-13] MEDS: LEVOTHYROXINE 75 MCG TABLET PO SCH (10:08)
[2021-07-13] MEDS: POTASSIUM CHLORIDE 20 MEQ TABLET.ER. PO SCH ×2 (10:08→22:03)
[2021-07-13 10:17] VITALS: BP 155/71
--- NOTE | 2021-07-13 12:18 | PDOC ---
[employer] PROGRESS NOTE Date of Service DOS: DATE: 07/13/21 TIME: 12:14 Chief Complaint Chief Complaint Assessment/Plan A. fib RVR History of PA fib on Eliquis History of diabetes mellitus type 2 History of hypothyroidism History of diastolic systolic CHF, LVEF of 45% and grade 1 abnormal relaxation pattern on echo 10/08/2020 Add losartan Cardiology consulted for possible cardioversion over the weekend Continue telemetry monitoring Resume home diltiazem Hold flecainide Pending TSH Eliquis for DVT prophylaxis ADA diet CODE STATUS full Discussed with RN and SW Disposition inpatient management as above DPOA: Mother History of Present Illness History of Present Illness 71 year old F who presents with A. fib with RVR. Patient states that since last night she has felt like she has had a very fast heart rate. She has had no other symptoms. She is feeling well, no chest pain. She states that last month she had an ablation for SVT, she developed A. fib after the ablation. Otherwise patient is doing well. 07/13/2021 No acute events overnight. Patient seen examined bedside. No major telemetry events overnight. Patient is ambulating through the hallways without any symptoms. Heart rate stayed in the 80s overnight and this morning. Blood pressures elevated in the 160s up to 180s. Started on low-dose losartan. Potassium 3.4 today and will replace. Patient's chart, labs, images were reviewed and discussed with RN Vitals/I&O Vitals/I&O: Vital Signs Date Time Temp Pulse Resp B/P (MAP) Pulse Ox O2 Delivery O2 Flow Rate FiO2 07/13/21 10:17 97.5 79 16 155/71 (99) 97 Room Air 97.5 I & O 07/12/21 07/12/21 07/13/21 15:00 23:00 07:00 Intake Total 200 ml 600 ml Balance 200 ml 600 ml Physical Exam General: Alert, Oriented X3, Cooperative Heart: Regular rate Lungs: Wheezing Extremities: No clubbing Skin: No rashes Labs Labs: Laboratory Tests Test 07/12/21 13:07 07/12/21 15:35 07/12/21 16:06 07/13/21 03:45 Troponin I High Sensitivity 17 ng/L (4-50) 21 ng/L (4-50) Thyroid Stimulating Hormone (TSH) 2.057 uIU/mL (0.358-3.74) White Blood Count 5.7 x10^3/uL (4.0-11.0) Red Blood Count 3.65 x10^6/uL (3.50-5.40) Hemoglobin 10.8 g/dL (12.0-15.5) Hematocrit 31.9 % (36.0-47.0) Mean Corpuscular Volume 87 fL (79-100) Mean Corpuscular Hemoglobin 29 pg (25-35) Mean Corpuscular Hemoglobin Concent 34 g/dL (31-37) Red Cell Distribution Width 13.4 % (11.5-14.5) Platelet Count 232 x10^3/uL (140-400) Neutrophils (%) (Auto) 55 % (31-73) Lymphocytes (%) (Auto) 34 % (24-48) Monocytes (%) (Auto) 10 % (0-9) Eosinophils (%) (Auto) 1 % (0-3) Basophils (%) (Auto) 0 % (0-3) Neutrophils # (Auto) 3.1 x10^3/uL (1.8-7.7) Lymphocytes # (Auto) 1.9 x10^3/uL (1.0-4.8) Monocytes # (Auto) 0.5 x10^3/uL (0.0-1.1) Eosinophils # (Auto) 0.1 x10^3/uL (0.0-0.7) Basophils # (Auto) 0.0 x10^3/uL (0.0-0.2) Sodium Level 136 mmol/L (136-145) Potassium Level 3.4 mmol/L (3.5-5.1) Chloride Level 101 mmol/L (98-107) Carbon Dioxide Level 25 mmol/L (21-32) Anion Gap 10 (6-14) Blood Urea Nitrogen 15 mg/dL (7-20) Creatinine 1.0 mg/dL (0.6-1.0) Estimated GFR (Cockcroft-Gault) 54.8 Glucose Level 118 mg/dL (70-99) Calcium Level 8.2 mg/dL (8.5-10.1) Phosphorus Level 3.7 mg/dL (2.6-4.7) Magnesium Level 2.0 mg/dL (1.8-2.4) Assessment and Plan Assessmemt and Plan Problems Medical Problems: (1) Atrial fibrillation with RVR Status: Acute Comment Review of Relevant I have reviewed the following items scarlet (where applicable) has been applied. Medications: Current Medications Medications (Trade) Dose Ordered Sig/Harrison Route PRN Reason Start Time Stop Time Status Last Admin Dose Admin Acetaminophen (Tylenol) 650 mg PRN Q4HRS PRN PO TEMP OVER 100.4F OR MILD PAIN 07/12/21 15:45 07/13/21 09:01 Lorazepam (Ativan) 0.5 mg PRN Q6HRS PRN PO ANXIETY / AGITATION 07/12/21 15:45 07/12/21 21:40 Apixaban (Eliquis) 5 mg BID PO 07/12/21 21:00 07/13/21 09:01 Diltiazem HCl (Cardizem 24hr Cd) 180 mg DAILY PO 07/13/21 09:00 07/13/21 09:01 Levothyroxine Sodium (Synthroid) 75 mcg DAILYAC PO 07/13/21 07:30 07/13/21 10:08 Metformin HCl (Glucophage) 500 mg DAILYWBKFT PO 07/13/21 08:00 07/13/21 09:00 Atorvastatin Calcium (Lipitor) 20 mg QHS PO 07/12/21 21:00 07/12/21 21:35 Pantoprazole Sodium (Protonix) 40 mg DAILYAC PO 07/13/21 07:30 07/13/21 09:00 Amiodarone HCl (Cordarone) 200 mg BID PO 07/12/21 21:00 07/13/21 09:00 Potassium Chloride (Klor-Con) 40 meq BID PO 07/13/21 09:30 07/13/21 21:01 07/13/21 10:08 Justifications for Admission Other Justification A. fib RVR FARZANEH PICKARD MD Jul 13, 2021 12:18
--- NOTE | 2021-07-13 12:19 | PDOC ---
CARDIOLOGY PROGRESS NOTE SUBJECTIVE: No new events. Patient is ambulating halls w/o a problem. OBJECTIVE: Vital Signs/I&O: Vital Signs Date Time Temp Pulse Resp B/P (MAP) Pulse Ox O2 Delivery O2 Flow Rate FiO2 07/13/21 10:17 97.5 79 16 155/71 (99) 97 Room Air 97.5 I & O 07/12/21 07/12/21 07/13/21 15:00 23:00 07:00 Intake Total 200 ml 600 ml Balance 200 ml 600 ml Objective: GEN.: No apparent distress. Alert and oriented. HEENT: Head is normocephalic, atraumatic NECK: Supple. LUNGS: Clear to auscultation. HEART: RRR, S1, S2 present. Peripheral pulses intact ABDOMEN: Soft, nontender. Positive bowel sounds. EXTREMITIES: Without any cyanosis. NEUROLOGIC: Normal speech, normal tone PSYCHIATRIC: Normal affect, normal mood. SKIN: No ulcerations CURRENT MEDICATIONS: Current Medications Medications (Trade) Dose Ordered Sig/Harrison Route PRN Reason Start Time Stop Time Status Last Admin Dose Admin Acetaminophen (Tylenol) 650 mg PRN Q4HRS PRN PO TEMP OVER 100.4F OR MILD PAIN 07/12/21 15:45 07/13/21 09:01 Lorazepam (Ativan) 0.5 mg PRN Q6HRS PRN PO ANXIETY / AGITATION 07/12/21 15:45 07/12/21 21:40 Apixaban (Eliquis) 5 mg BID PO 07/12/21 21:00 07/13/21 09:01 Diltiazem HCl (Cardizem 24hr Cd) 180 mg DAILY PO 07/13/21 09:00 07/13/21 09:01 Levothyroxine Sodium (Synthroid) 75 mcg DAILYAC PO 07/13/21 07:30 07/13/21 10:08 Metformin HCl (Glucophage) 500 mg DAILYWBKFT PO 07/13/21 08:00 07/13/21 09:00 Atorvastatin Calcium (Lipitor) 20 mg QHS PO 07/12/21 21:00 07/12/21 21:35 Pantoprazole Sodium (Protonix) 40 mg DAILYAC PO 07/13/21 07:30 07/13/21 09:00 Amiodarone HCl (Cordarone) 200 mg BID PO 07/12/21 21:00 07/13/21 09:00 Potassium Chloride (Klor-Con) 40 meq BID PO 07/13/21 09:30 07/13/21 21:01 07/13/21 10:08 DIAGNOSTIC TESTING: Labs reviewed. Labs: Laboratory Tests 07/13/21 03:45 Laboratory Tests Test 07/12/21 13:07 07/12/21 15:35 07/12/21 16:06 07/13/21 03:45 Troponin I High Sensitivity 17 ng/L (4-50) 21 ng/L (4-50) Thyroid Stimulating Hormone (TSH) 2.057 uIU/mL (0.358-3.74) White Blood Count 5.7 x10^3/uL (4.0-11.0) Red Blood Count 3.65 x10^6/uL (3.50-5.40) Hemoglobin 10.8 g/dL (12.0-15.5) L Hematocrit 31.9 % (36.0-47.0) L Mean Corpuscular Volume 87 fL (79-100) Mean Corpuscular Hemoglobin 29 pg (25-35) Mean Corpuscular Hemoglobin Concent 34 g/dL (31-37) Red Cell Distribution Width 13.4 % (11.5-14.5) Platelet Count 232 x10^3/uL (140-400) Neutrophils (%) (Auto) 55 % (31-73) Lymphocytes (%) (Auto) 34 % (24-48) Monocytes (%) (Auto) 10 % (0-9) H Eosinophils (%) (Auto) 1 % (0-3) Basophils (%) (Auto) 0 % (0-3) Neutrophils # (Auto) 3.1 x10^3/uL (1.8-7.7) Lymphocytes # (Auto) 1.9 x10^3/uL (1.0-4.8) Monocytes # (Auto) 0.5 x10^3/uL (0.0-1.1) Eosinophils # (Auto) 0.1 x10^3/uL (0.0-0.7) Basophils # (Auto) 0.0 x10^3/uL (0.0-0.2) Sodium Level 136 mmol/L (136-145) Potassium Level 3.4 mmol/L (3.5-5.1) L Chloride Level 101 mmol/L (98-107) Carbon Dioxide Level 25 mmol/L (21-32) Anion Gap 10 (6-14) Blood Urea Nitrogen 15 mg/dL (7-20) Creatinine 1.0 mg/dL (0.6-1.0) Estimated GFR (Cockcroft-Gault) 54.8 Glucose Level 118 mg/dL (70-99) H Calcium Level 8.2 mg/dL (8.5-10.1) L Phosphorus Level 3.7 mg/dL (2.6-4.7) ASSESSMENT: 1. SVT 2. PAF 3. HTN PLAN: 1. Continue amiodarone and dilt. Stop flecainide. Continue eliquis. 2. Supportive care. She will f/u with [facility] EP service. Thanks Justicifation of Admission Dx: Justifications for Admission: Justification of Admission Dx: Yes CHF: Cardiac Arrhythmias CODI PIKE MD Jul 13, 2021 12:19
[2021-07-13] MEDS ORDERED: AMIODARONE 150 MG in IV DEXTROSE 5% 100ML 100 ML IV ONE (12:30)
[2021-07-13 15:00] VITALS: BP 160/78
[2021-07-13] MEDS: LORazepam 0.5 MG TABLET PO PRN ×2 (15:59→22:07)
[2021-07-13] MEDS ORDERED: AMIO200T53 PO (16:58)
[2021-07-13 19:16] VITALS: BP 171/72
[2021-07-13] MEDS: ATORVASTATIN CALCIUM 20 MG TABLET PO SCH (22:04)
[2021-07-13 22:33] VITALS: BP 125/58
[2021-07-14] VITALS (10 sets, daily range): BP systolic 120–169; BP diastolic 62–96
[2021-07-14] MEDS: LORazepam 0.5 MG TABLET PO PRN ×2 (03:47→20:27)
[2021-07-14 04:43] LABS: BASO % 0 % (0-3); EOS # 0.1 x10^3/uL (0.0-0.7); EOS % 1 % (0-3); HEMOGLOBIN 10.9 g/dL (12.0-15.5); LYMPH # 2.2 x10^3/uL (1.0-4.8); LYMPH % 47 % (24-48); MEAN CORPUSCULAR HEMOGLOBIN 30 pg (25-35); MEAN CORPUSCULAR HGB CONC 34 g/dL (31-37); MEAN CORPUSCULAR VOLUME 86 fL (79-100); MONO # 0.5 x10^3/uL (0.0-1.1); MONO % 10 % (0-9); NEUT % 42 % (31-73); PLATELET COUNT 222 x10^3/uL (140-400); RED BLOOD COUNT 3.71 x10^6/uL (3.50-5.40); RED CELL DISTRIBUTION WIDTH 13.4 % (11.5-14.5); WHITE BLOOD COUNT 4.8 x10^3/uL (4.0-11.0)
[2021-07-14] MEDS: LEVOTHYROXINE 75 MCG TABLET PO SCH (04:54)
--- NOTE | 2021-07-14 05:24 | NUR ---
Pt is very anxious about her HR being A-fib in the 130's while walking around the unit. Instructed pt to go back to bed at this time. Pt's HR then returned to 90-110. Pt requesting her heart medication now. Gave pt's 0900 dose of cardizem at this time. Educated pt on new heart medications. Reenforcement needed. Call light within reach. Will monitor.
[2021-07-14 05:41] LABS: CALCIUM 8.6 mg/dL (8.5-10.1); CREATININE 0.9 mg/dL (0.6-1.0); GFR 61.9; POTASSIUM 4.4 mmol/L (3.5-5.1)
[2021-07-14] MEDS: INSULIN LISPRO 300 UNITS/3 ML VIAL. SQ SCH ×3 (08:00→17:00)
[2021-07-14] MEDS: LOSARTAN POTASSIUM 25 MG TABLET. PO SCH (09:00)
[2021-07-14] MEDS: metFORMIN 500 MG TABLET PO SCH (09:12)
[2021-07-14] MEDS: APIXABAN 5 MG TABLET. PO SCH ×2 (09:12→20:27)
[2021-07-14] MEDS: PANTOPRAZOLE 40 MG TABLET.DR. PO SCH (09:12)
[2021-07-14] MEDS: AMIODARONE HCL 200 MG TABLET. PO SCH ×2 (09:13→20:25)
[2021-07-14] MEDS ORDERED: LOSA25TA54 PO (09:33)
--- NOTE | 2021-07-14 09:33 | DISCH ---
DISCHARGE INSTRUCTIONS Condition on Discharge Condition on Discharge: Stable Activity After Discharge Activity Instructions for Disc: No restrictions, Activity as tolerated, Avoid exertion Exercise Instruction after Dis: Walk 30 min, 5 x per week, Progress as tolerated Driving Instructions after Dis: Do not drive today Weight Bearing Status after Di: No restrictions Diet after Discharge Diet after Discharge: Cardiac Diet Texture: Regular Swallowing Supervision: None needed Wound Incision Care Wound/Incision Care: No wound care needed Checks after Discharge Checks after discharge: Check blood press - daily Follow-Up Follow up with: PCP within 2 weeks of discharge Follow Up With: Cardiology as needed or as scheduled Treatment/Equipment after DC Adaptive Equipment Issued: None FARZANEH PICKARD MD Jul 14, 2021 09:33
[2021-07-14] MEDS ORDERED: AMIODARONE 150 MG in IV DEXTROSE 5% 100ML 100 ML IV ONE (12:45)
--- NOTE | 2021-07-14 13:56 | PDOC ---
CARDIOLOGY PROGRESS NOTE SUBJECTIVE: Patient is anxious this morning. She was unable to be discharged due to tachycardia. She denies any current chest pain or dyspnea. She is wanting to get up and walk around but is afraid that her fast heart rate will cause some damage to her heart. We spent a considerable amount of time today trying to help the patient be less anxious about her issue. OBJECTIVE: Vital Signs/I&O: Vital Signs Date Time Temp Pulse Resp B/P (MAP) Pulse Ox O2 Delivery O2 Flow Rate FiO2 07/14/21 13:35 118 149/77 07/14/21 11:00 98.8 19 98 Room Air 98.8 I & O 07/13/21 07/13/21 07/14/21 15:00 23:00 07:00 Intake Total 400 ml 0 ml 300 ml Balance 400 ml 0 ml 300 ml Objective: GEN.: No apparent distress. Alert and oriented. HEENT: Head is normocephalic, atraumatic NECK: Supple. LUNGS: Clear to auscultation. HEART: RRR, S1, S2 present. Peripheral pulses intact ABDOMEN: Soft, nontender. Positive bowel sounds. EXTREMITIES: Without any cyanosis. NEUROLOGIC: Normal speech, normal tone PSYCHIATRIC: Normal affect, normal mood. SKIN: No ulcerations CURRENT MEDICATIONS: Current Medications Medications (Trade) Dose Ordered Sig/Harrison Route PRN Reason Start Time Stop Time Status Last Admin Dose Admin Amiodarone HCl 150 mg/Dextrose 103 ml @ 618 mls/hr 1X ONCE IV 07/14/21 12:45 07/14/21 12:54 DC 07/14/21 13:35 DIAGNOSTIC TESTING: Telemetry demonstrates paroxysmal atrial flutter/SVT Labs: Laboratory Tests 07/14/21 04:00 Laboratory Tests Test 07/14/21 04:00 White Blood Count 4.8 x10^3/uL (4.0-11.0) Red Blood Count 3.71 x10^6/uL (3.50-5.40) Hemoglobin 10.9 g/dL (12.0-15.5) L Hematocrit 32.0 % (36.0-47.0) L Mean Corpuscular Volume 86 fL (79-100) Mean Corpuscular Hemoglobin 30 pg (25-35) Mean Corpuscular Hemoglobin Concent 34 g/dL (31-37) Red Cell Distribution Width 13.4 % (11.5-14.5) Platelet Count 222 x10^3/uL (140-400) Neutrophils (%) (Auto) 42 % (31-73) Lymphocytes (%) (Auto) 47 % (24-48) Monocytes (%) (Auto) 10 % (0-9) H Eosinophils (%) (Auto) 1 % (0-3) Basophils (%) (Auto) 0 % (0-3) Neutrophils # (Auto) 2.0 x10^3/uL (1.8-7.7) Lymphocytes # (Auto) 2.2 x10^3/uL (1.0-4.8) Monocytes # (Auto) 0.5 x10^3/uL (0.0-1.1) Eosinophils # (Auto) 0.1 x10^3/uL (0.0-0.7) Basophils # (Auto) 0.0 x10^3/uL (0.0-0.2) Sodium Level 136 mmol/L (136-145) Potassium Level 4.4 mmol/L (3.5-5.1) Chloride Level 102 mmol/L (98-107) Carbon Dioxide Level 24 mmol/L (21-32) Anion Gap 10 (6-14) Blood Urea Nitrogen 11 mg/dL (7-20) Creatinine 0.9 mg/dL (0.6-1.0) Estimated GFR (Cockcroft-Gault) 61.9 Glucose Level 111 mg/dL (70-99) H Calcium Level 8.6 mg/dL (8.5-10.1) ASSESSMENT: 1. SVT PLAN: 1. We will start amiodarone drip and continue over the next 24 hours. Her flecainide has been held. Continue diltiazem. Continue anticoagulation. Supportive care for now Justicifation of Admission Dx: Justifications for Admission: Justification of Admission Dx: Yes CHF: Cardiac Arrhythmias CODI PIKE MD Jul 14, 2021 13:56
[2021-07-14] MEDS: AMIODARONE 450 MG in IV DEXTROSE 5% 250 ML IV PRN ×2 (14:01→23:37)
--- NOTE | 2021-07-14 15:47 | PDOC ---
[facility] PROGRESS NOTE Date of Service DOS: DATE: 07/14/21 TIME: 15:47 Chief Complaint Chief Complaint Assessment/Plan A. fib RVR History of PA fib on Eliquis History of diabetes mellitus type 2 History of hypothyroidism History of diastolic systolic CHF, LVEF of 45% and grade 1 abnormal relaxation pattern on echo 10/08/2020 Add losartan Cardiology consulted for possible cardioversion over the weekend Continue telemetry monitoring Resume home diltiazem Hold flecainide Pending TSH Eliquis for DVT prophylaxis ADA diet CODE STATUS full Discussed with RN and SW Disposition inpatient management as above DPOA: Mother History of Present Illness History of Present Illness 71 year old F who presents with A. fib with RVR. Patient states that since last night she has felt like she has had a very fast heart rate. She has had no other symptoms. She is feeling well, no chest pain. She states that last month she had an ablation for SVT, she developed A. fib after the ablation. Otherwise patient is doing well. 07/13/2021 No acute events overnight. Patient seen examined bedside. No major telemetry events overnight. Patient is ambulating through the hallways without any symptoms. Heart rate stayed in the 80s overnight and this morning. Blood pressures elevated in the 160s up to 180s. Started on low-dose losartan. Potassium 3.4 today and will replace. Patient's chart, labs, images were reviewed and discussed with RN 07/14/2021 No acute events overnight. Patient seen examined bedside. Patient was actually at the desk this afternoon concerned about her heart rate dropping into the 130s. Seen by cardiology and discussed with her to keep another night with amiodarone drip. Patient's chart, labs, images were reviewed and discussed with RN Vitals/I&O Vitals/I&O: Vital Signs Date Time Temp Pulse Resp B/P (MAP) Pulse Ox O2 Delivery O2 Flow Rate FiO2 07/14/21 13:35 118 149/77 07/14/21 11:00 98.8 19 98 Room Air 98.8 I & O 07/13/21 07/13/21 07/14/21 15:00 23:00 07:00 Intake Total 400 ml 0 ml 300 ml Balance 400 ml 0 ml 300 ml Physical Exam General: Alert, Oriented X3, Cooperative Heart: Regular rate Lungs: Wheezing Extremities: No clubbing Skin: No rashes Labs Labs: Laboratory Tests Test 07/14/21 04:00 White Blood Count 4.8 x10^3/uL (4.0-11.0) Red Blood Count 3.71 x10^6/uL (3.50-5.40) Hemoglobin 10.9 g/dL (12.0-15.5) Hematocrit 32.0 % (36.0-47.0) Mean Corpuscular Volume 86 fL (79-100) Mean Corpuscular Hemoglobin 30 pg (25-35) Mean Corpuscular Hemoglobin Concent 34 g/dL (31-37) Red Cell Distribution Width 13.4 % (11.5-14.5) Platelet Count 222 x10^3/uL (140-400) Neutrophils (%) (Auto) 42 % (31-73) Lymphocytes (%) (Auto) 47 % (24-48) Monocytes (%) (Auto) 10 % (0-9) Eosinophils (%) (Auto) 1 % (0-3) Basophils (%) (Auto) 0 % (0-3) Neutrophils # (Auto) 2.0 x10^3/uL (1.8-7.7) Lymphocytes # (Auto) 2.2 x10^3/uL (1.0-4.8) Monocytes # (Auto) 0.5 x10^3/uL (0.0-1.1) Eosinophils # (Auto) 0.1 x10^3/uL (0.0-0.7) Basophils # (Auto) 0.0 x10^3/uL (0.0-0.2) Sodium Level 136 mmol/L (136-145) Potassium Level 4.4 mmol/L (3.5-5.1) Chloride Level 102 mmol/L (98-107) Carbon Dioxide Level 24 mmol/L (21-32) Anion Gap 10 (6-14) Blood Urea Nitrogen 11 mg/dL (7-20) Creatinine 0.9 mg/dL (0.6-1.0) Estimated GFR (Cockcroft-Gault) 61.9 Glucose Level 111 mg/dL (70-99) Calcium Level 8.6 mg/dL (8.5-10.1) Magnesium Level 2.0 mg/dL (1.8-2.4) Assessment and Plan Assessmemt and Plan Problems Medical Problems: (1) Atrial fibrillation with RVR Status: Acute Comment Review of Relevant I have reviewed the following items scarlet (where applicable) has been applied. Medications: Current Medications Medications (Trade) Dose Ordered Sig/Harrison Route PRN Reason Start Time Stop Time Status Last Admin Dose Admin Amiodarone HCl 450 mg/Dextrose 259 ml @ 0 mls/hr CONT PRN IV SEE I/O RECORD 07/14/21 12:45 07/15/21 12:37 07/14/21 14:01 Amiodarone HCl 150 mg/Dextrose 103 ml @ 618 mls/hr 1X ONCE IV 07/14/21 12:45 07/14/21 12:54 DC 07/14/21 13:35 Justifications for Admission Other Justification A. fib RVR FARZANEH PICKARD MD Jul 14, 2021 15:47
--- NOTE | 2021-07-14 20:14 | NUR ---
Patient's HR continued to get elevated at times today in afib. Discharge cancelled. Dr. Jewell ordered amiodarone gtt. Will continue to monitor.
[2021-07-14] MEDS: ATORVASTATIN CALCIUM 20 MG TABLET PO SCH (20:27)
--- NOTE | 2021-07-14 20:43 | NUR ---
pt po amiodarone held d/t pt on iv amiodarone gtt. will cont to monitor pt status and safety. pmrn
[2021-07-15 00:54] VITALS: BP 111/57
[2021-07-15 02:41] VITALS: BP 117/60
[2021-07-15 03:10] VITALS: BP 117/60
[2021-07-15 05:54] VITALS: BP 121/58
[2021-07-15] MEDS: LEVOTHYROXINE 75 MCG TABLET PO SCH (06:15)
[2021-07-15] MEDS: PANTOPRAZOLE 40 MG TABLET.DR. PO SCH (06:15)
[2021-07-15 06:47] LABS: BASO % 0 % (0-3); EOS % 1 % (0-3); HEMATOCRIT 30.6 % (36.0-47.0); HEMOGLOBIN 10.4 g/dL (12.0-15.5); LYMPH # 1.8 x10^3/uL (1.0-4.8); LYMPH % 37 % (24-48); MEAN CORPUSCULAR HEMOGLOBIN 29 pg (25-35); MEAN CORPUSCULAR HGB CONC 34 g/dL (31-37); MEAN CORPUSCULAR VOLUME 86 fL (79-100); MONO # 0.5 x10^3/uL (0.0-1.1); MONO % 11 % (0-9); NEUT # 2.5 x10^3/uL (1.8-7.7); NEUT % 51 % (31-73); PLATELET COUNT 232 x10^3/uL (140-400); RED BLOOD COUNT 3.57 x10^6/uL (3.50-5.40); RED CELL DISTRIBUTION WIDTH 13.3 % (11.5-14.5); WHITE BLOOD COUNT 4.8 x10^3/uL (4.0-11.0)
[2021-07-15 07:00] VITALS: BP 131/63
[2021-07-15 07:12] LABS: CALCIUM 8.6 mg/dL (8.5-10.1); CREATININE 0.9 mg/dL (0.6-1.0); GFR 61.9; MAGNESIUM 1.8 mg/dL (1.8-2.4)
[2021-07-15] MEDS: INSULIN LISPRO 300 UNITS/3 ML VIAL. SQ SCH ×2 (08:00→12:00)
[2021-07-15] MEDS: AMIODARONE HCL 200 MG TABLET. PO SCH (08:35)
[2021-07-15] MEDS: LOSARTAN POTASSIUM 25 MG TABLET. PO SCH ×2 (08:36→08:50)
[2021-07-15] MEDS: metFORMIN 500 MG TABLET PO SCH (08:36)
[2021-07-15] MEDS: APIXABAN 5 MG TABLET. PO SCH (08:36)
[2021-07-15] MEDS: LORazepam 0.5 MG TABLET PO PRN (08:50)
[2021-07-15 11:00] VITALS: BP 144/81
--- NOTE | 2021-07-15 12:29 | NUR ---
MEDICATION NOTE PT CONTINUES TO REFUSE BLOOD SUGAR CHECKS, SO INSULIN IS CONTINUING TO BE HELD.
--- NOTE | 2021-07-15 14:32 | PDOC3 ---
[facility]-Discharge Summary Date of Admission: Date of Admission: Jul 12, 2021 Date of Discharge: Date of Discharge: Jul 15, 2021 Admission Diagnosis: Admitting Diagnosis: afib with rvr Consults: Consults: cards Hospital Course: Hospital Course: Chief Complaint Assessment/Plan A. fib RVR History of PA fib on Eliquis History of diabetes mellitus type 2 History of hypothyroidism History of diastolic systolic CHF, LVEF of 45% and grade 1 abnormal relaxation p attern on echo 10/08/2020 Add losartan Cardiology consulted for possible cardioversion over the weekend Continue telemetry monitoring Resume home diltiazem Hold flecainide Pending TSH Eliquis for DVT prophylaxis ADA diet CODE STATUS full Discussed with RN and SW Disposition inpatient management as above DPOA: Mother History of Present Illness History of Present Illness 71 year old F who presents with A. fib with RVR. Patient states that since last night she has felt like she has had a very fast heart rate. She has had no other symptoms. She is feeling well, no chest pain. She states that last month she had an ablation for SVT, she developed A. fib after the ablation. Otherwise patient is doing well. 07/13/2021 No acute events overnight. Patient seen examined bedside. No major telemetry events overnight. Patient is ambulating through the hallways without any symptoms. Heart rate stayed in the 80s overnight and this morning. Blood pressures elevated in the 160s up to 180s. Started on low-dose losartan. Potassium 3.4 today and will replace. Patient's chart, labs, images were reviewed and discussed with RN 07/14/2021 No acute events overnight. Patient seen examined bedside. Patient was actually at the desk this afternoon concerned about her heart rate dropping into the 130s. Seen by cardiology and discussed with her to keep another night with amiodarone drip. Patient's chart, labs, images were reviewed and discussed with RN 07/15 Evaluated examined at bedside. Continued amiodarone. Was able to be stopped today. Discussed with cardiology team. Okay for discharge home today with follow-up outpatient. Greater than 30 minutes spent on this discharge. Disposition: Disposition/Orders: D/C to Home Activity: Activity: Resume previous activity Diet: Diet: Cardiac Medications: Home Meds Active Scripts Losartan Potassium (LOSARTAN POTASSIUM ) 25 Mg Tablet, 25 MG PO QHS for high blood pressure for 30 Days, #30 TAB 2 Refills Prov:FARZANEH PICKARD MD 07/14/21 Amiodarone Hcl (AMIODARONE HCL) 200 Mg Tablet, 200 MG PO BID for atrial fibrillation for 30 Days, #60 TAB 2 Refills Prov:FARZANEH PICKARD MD 07/13/21 Apixaban (ELIQUIS) 5 Mg Tablet, 5 MG PO BID for atrial fibrillation, #60 TAB 1 Refill Prov:TRUNG BATRES MD 06/19/21 Diltiazem Hcl (DILTIAZEM 24HR CD) 180 Mg Cap.er.24h, 180 MG PO DAILY for rate control, #30 CAP.SR 1 Refill Prov:TRUNG BATRES MD 06/19/21 Reported Medications Metformin Hcl (METFORMIN HCL) 500 Mg Tablet, 500 MG PO DAILY for ANTI-DIABETIC, TAB 0 Refills 08/22/20 Omeprazole (OMEPRAZOLE) 20 Mg Tablet.dr, 20 MG PO DAILY for GERD, TAB 08/22/20 Levothyroxine Sodium (LEVOTHYROXINE SODIUM) 75 Mcg Tablet, 75 MCG PO DAILYAC for THYROID SUPPLEMENT, #30 TAB 0 Refills 08/22/20 Simvastatin (SIMVASTATIN) 40 Mg Tablet, 40 MG PO HS for FOR CHOLESTEROL, #30 TAB 0 Refills 08/22/20 Discontinued Reported Medications Exemestane (EXEMESTANE) 25 Mg Tablet, 25 MG PO DAILY for CA, TAB 08/22/20 Discontinued Scripts Flecainide Acetate (FLECAINIDE ACETATE) 100 Mg Tablet, 1 TAB PO BID for HEART for 90 Days, #180 TAB 5 Refills Prov:DARNELL KAMARA MD 08/23/20 Scheduled Amiodarone Hcl (Amiodarone Hcl), 200 MG PO BID Apixaban (Eliquis), 5 MG PO BID Diltiazem Hcl (Diltiazem 24HR Cd), 180 MG PO DAILY Levothyroxine Sodium (Levothyroxine Sodium), 75 MCG PO DAILYAC, (Reported) Losartan Potassium (Losartan Potassium ), 25 MG PO QHS Metformin Hcl (Metformin Hcl), 500 MG PO DAILY, (Reported) Omeprazole (Omeprazole), 20 MG PO DAILY, (Reported) Simvastatin (Simvastatin), 40 MG PO HS, (Reported) Discontinued Medications Exemestane (Exemestane), 25 MG PO DAILY, (Reported) Flecainide Acetate (Flecainide Acetate), 1 TAB PO BID Justicifation of Admission Dx: Justifications for Admission: Justification of Admission Dx: Yes CHF: Cardiac Arrhythmias DARNELL ALVES MD Jul 15, 2021 14:32
--- NOTE | 2021-07-15 14:53 | NUR ---
DISCHARGE INFORMATION REVIEWED WITH PATIENT. PIV ET TELE DISCONTINUED AT THIS TIME. PT AMBULATES INDEPENDENTLY AND IS DRESSING FOR DC, AWAITING RIDE IN PERSONAL VEHICLE. WILL CALL OUT ENVIRONMENTAL EDUCATION SPECIALIST LIGHT WHEN RIDE ARRIVES.
--- NOTE | 2021-07-15 16:39 | PDOC ---
MARGE DIAS LOCKSTITCH LINING SETTER 07/15/21 1639: CARDIO Progress Notes Date and Time Date of Service 07/15/21 Time of Evaluation 1245 Subjective Subjective: No Chest Pain, No shortness of breath, No Palpitations, No Dizziness Vitals Vitals Vital Signs Date Time Temp Pulse Resp B/P (MAP) Pulse Ox O2 Delivery O2 Flow Rate FiO2 07/15/21 11:00 98.2 84 16 144/81 (102) 97 Room Air 98.2 Weight Weight [ ] Input and Output Intake and Output Intake and Output 07/15/21 07:00 Intake Total 564 ml Balance 564 ml Intake Oral 300 ml IV Total 264 ml # Voids 5 Laboratory Labs Laboratory Tests Test 07/15/21 06:00 White Blood Count 4.8 x10^3/uL (4.0-11.0) Red Blood Count 3.57 x10^6/uL (3.50-5.40) Hemoglobin 10.4 g/dL (12.0-15.5) Hematocrit 30.6 % (36.0-47.0) Mean Corpuscular Volume 86 fL (79-100) Mean Corpuscular Hemoglobin 29 pg (25-35) Mean Corpuscular Hemoglobin Concent 34 g/dL (31-37) Red Cell Distribution Width 13.3 % (11.5-14.5) Platelet Count 232 x10^3/uL (140-400) Neutrophils (%) (Auto) 51 % (31-73) Lymphocytes (%) (Auto) 37 % (24-48) Monocytes (%) (Auto) 11 % (0-9) Eosinophils (%) (Auto) 1 % (0-3) Basophils (%) (Auto) 0 % (0-3) Neutrophils # (Auto) 2.5 x10^3/uL (1.8-7.7) Lymphocytes # (Auto) 1.8 x10^3/uL (1.0-4.8) Monocytes # (Auto) 0.5 x10^3/uL (0.0-1.1) Eosinophils # (Auto) 0.0 x10^3/uL (0.0-0.7) Basophils # (Auto) 0.0 x10^3/uL (0.0-0.2) Sodium Level 133 mmol/L (136-145) Potassium Level 4.0 mmol/L (3.5-5.1) Chloride Level 98 mmol/L (98-107) Carbon Dioxide Level 25 mmol/L (21-32) Anion Gap 10 (6-14) Blood Urea Nitrogen 9 mg/dL (7-20) Creatinine 0.9 mg/dL (0.6-1.0) Estimated GFR (Cockcroft-Gault) 61.9 Glucose Level 123 mg/dL (70-99) Calcium Level 8.6 mg/dL (8.5-10.1) Magnesium Level 1.8 mg/dL (1.8-2.4) Physical Exam HEENT: Neck Supple W Full Motion Chest: Symmetric LUNGS: Clear to Auscultation Heart: RRR (SR) Abdomen: Soft N/T Extremities: No Edema Neurology: alert, oriented, follow commands Assessment Assessment 1. PAFIB; converted back to SR 2. Hypertension; blood pressure mildly elevated. Does not want losartan as lisinopril made BP drop too low and was symptomatic. 3. Hyperlipidemia 4. Presume NICM; Echo 10/17 with LVEF 45%. Limited echo pending 5. Diabetes, II 6. Hypothyroidism; no replacement Recommendations Oral Amiodarone when gtt complete Continue diltiazem for rate control Eliquis for stroke prophylaxis Supportive retirement blood pressure monitoring Outpatient follow up with EP Justicifation of Admission Dx: Justifications for Admission: Justification of Admission Dx: Yes CHF: Cardiac Arrhythmias CODI PIKE MD 07/15/21 [id number]: CARDIO Progress Notes Plan Plan The patient was seen and interviewed as well as examined at the bedside. The chart was reviewed. The case was discussed. Agree with the plan of care. MARGE DIAS APRN Jul 15, 2021 16:39 CODI PIKE MD Jul 15, 2021 23:49
--- NOTE | 2021-07-15 17:33 | CARD ---
MR#: [id number] Date of Study: 07/15/2021 Ordering Physician: FARZANEH PICKARD, Referring Physician: FARZANEH PICKARD, Tech: Lucita Valadez [facility] APPROVED REPORT EXAM: Two-dimensional and M-mode echocardiogram with Doppler and color Doppler. Other Information Quality : AverageHR: 87bpm Rhythm : NSR INDICATION Atrial Fibrillation RISK FACTORS Hypertension Hyperlipidemia Diabetes 2D DIMENSIONS Left Atrium(2D)3.9 (1.6-4.0cm)IVSd1.2 (0.7-1.1cm) Aortic Root(2D)3.2 (2.0-3.7cm)LVDd4.7 (3.9-5.9cm) LVOT Diameter2.0 (1.8-2.4cm)PWd1.1 (0.7-1.1cm) LVDs3.9 (2.5-4.0cm)FS (%) 18.0 % SV38.8 ml LEFT VENTRICLE The Left Ventricle is borderline dilated. There is mild concentric left ventricular hypertrophy. The LV ejection fraction is significantly impaired. LV ejection fraction is 25 to 30%. There is global hy pokinesis of the left ventricle. RIGHT VENTRICLE The right ventricle is normal size. There is normal right ventricular wall thickness. The right ventr icular systolic function is normal. ATRIA The left atrium is mildly dilated. The right atrium size is normal. The interatrial septum is intact with no evidence for an atrial septal defect or patent foramen ovale as noted on 2-D or Doppler imagi ng. AORTIC VALVE The aortic valve is normal in structure and function. Doppler and Color Flow revealed trace aortic re gurgitation. There is no significant aortic valvular stenosis. MITRAL VALVE The mitral valve is normal in structure and function. There is no evidence of mitral valve prolapse. There is no mitral valve stenosis. Doppler and Color-flow revealed mild mitral regurgitation. TRICUSPID VALVE The tricuspid valve is normal in structure and function. Doppler and Color Flow revealed trace tricus pid regurgitation. There is no tricuspid valve stenosis. GREAT VESSELS The aortic root is normal in size. The ascending aorta is normal in size. PERICARDIAL EFFUSION There is no evidence of significant pericardial effusion. Critical Notification Critical Value: No <Conclusion> The Left Ventricle is borderline dilated. The LV ejection fraction is significantly impaired. LV ejection fraction is 25 to 30%. There is global hypokinesis of the left ventricle. There is mild concentric left ventricular hypertrophy. Doppler and Color Flow revealed trace aortic regurgitation. There is no significant aortic valvular stenosis. Doppler and Color-flow revealed mild mitral regurgitation. Doppler and Color Flow revealed trace tricuspid regurgitation. Signed by : Jatin Kruger MD Electronically Approved : 07/15/2021 17:32:42
== END 2021-07-15 15:46 | disposition home or self-care (01) | DRG 309 ==
LOC: ER 10:17 → 6 SOUTH 12:20
PROVIDERS: ADMIT Internal Medicine; ATTEND Internal Medicine
DX: I48.0 Paroxysmal atrial fibrillation (principal); I50.42 Chronic combined systolic (congestive) and diastolic (congestive) heart failure; I47.1 Supraventricular tachycardia; I42.8 Other cardiomyopathies; E03.9 Hypothyroidism, unspecified; E11.9 Type 2 diabetes mellitus without complications; E78.5 Hyperlipidemia, unspecified; I11.0 Hypertensive heart disease with heart failure; Z85.3 Personal history of malignant neoplasm of breast; Z90.13 Acquired absence of bilateral breasts and nipples; Z98.51 Tubal ligation status; Z88.0 Allergy status to penicillin; Z88.8 Allergy status to other drugs, medicaments and biological substances
CPT/HCPCS: 36415; 71045; 80048; 80053; 83735; 83880; 84100; 84443; 84484; 85025; 93005; 93308; 96374; J0282; J1815; J3490; J7060; 99285-25; G0378

== ENCOUNTER → 2021-07-30 | Outpatient (CLI) | payer MEDICARE, OTHER ==
[2021-07-15 11:00] VITALS: BP 144/81
[~2021-07-30] MED LIST changes: +AMIO200T53 PO; +LOSA25TA54 PO
--- NOTE | 2021-07-30 11:36 | CARD ---
MR#: [id number] Date of Study: 07/30/2021 Ordering Physician: CODI PIKE, Referring Physician: CODI PIKE, Tech: APPROVED REPORT EXAM Loop Recorder INDICATIONS Atrial fibrillation [employer]ATION [employer]ENTS After appropriate informed consent the left chest was prepped and draped in usual sterile fashion. U nder 1% lidocaine local anesthesia a 0.5 inch incision was made and a Medtronic loop recorder with se rial number [id number] was implanted in the subcutaneous fascia without difficulty. Appropriate amp litudes were noted and the incision was closed with Steri-Strips. CONCLUSION 1. Successful insertion of a Medtronic loop recorder for monitoring of atrial fibrillation Signed by : Codi Pike, Electronically Approved : 07/30/2021 11:36:08
== END | disposition home or self-care (01) ==
LOC: LINQ 09:56
PROVIDERS: ATTEND Internal Medicine Cardiovascular Disease
DX: I48.91 Unspecified atrial fibrillation (principal); E78.00 Pure hypercholesterolemia, unspecified; E11.9 Type 2 diabetes mellitus without complications; E03.9 Hypothyroidism, unspecified; K21.9 Gastro-esophageal reflux disease without esophagitis; F41.9 Anxiety disorder, unspecified; Z85.3 Personal history of malignant neoplasm of breast; Z79.84 Long term (current) use of oral hypoglycemic drugs; Z79.899 Other long term (current) drug therapy; Z88.0 Allergy status to penicillin; Z88.6 Allergy status to analgesic agent; Z88.8 Allergy status to other drugs, medicaments and biological substances; Z98.890 Other specified postprocedural states
CPT/HCPCS: 33285; C1764